=== PATIENT | male | born 1940 | race Two or more races ===

== ENCOUNTER 2023-05-05 07:25 | Outpatient (OUT) | payer MEDICARE, BC, SELFPAY ==
[2023-05-05 07:51] LABS: Basophils Absolute Auto 0.1 10^3/uL (0.0-0.1); Basophils Percent Auto 0.9 % (0.2-2.0); Eosinophils Absolute Auto 0.3 10^3/uL (0.0-0.7); Eosinophils Percent Auto 4.2 % (0.9-7.0); Hemoglobin 15.4 g/dL (14.0-18.0); Immature Granulocytes Abs Auto 0.03 10^3/uL (0.00-0.03); Immature Granulocytes Pct Auto 0.4 % (0.0-0.5); Lymphocytes Absolute Auto 1.8 10^3/uL (1.2-3.8); Lymphocytes Percent Auto 27.1 % (20.5-60.0); Mean Corpuscular HGB Conc 33.5 g/dL (29.9-35.2); Mean Corpuscular Hemoglobin 31.3 pg (25.9-34.0); Mean Corpuscular Volume 93.5 fL (80.0-94.0); Mean Platelet Volume 9.7 fL (9.5-13.5); Monocytes Absolute Auto 0.7 10^3/uL (0.3-0.8); Monocytes Percent Auto 10.3 % (1.7-12.0); Neutrophils Absolute Auto 3.8 10^3/uL (1.4-6.5); Neutrophils Percent Auto 57.1 % (43.0-75.0); Platelet Count 238 10^3/uL (150-450); Red Blood Count 4.92 10^6/uL (4.70-6.10); Red Cell Distribution Width 12.2 % (11.0-15.0); White Blood Count 6.7 10^3/uL (4.0-11.0)
[2023-05-05 08:12] LABS: Estimated Average Glucose 123 mg/dL; Glycohemoglobin A1C 5.9 % (4.5-6.2)
[2023-05-05 08:25] LABS: Alanine Aminotransferase 44 U/L (16-63); Albumin Globulin Ratio 1.1; Albumin Level 3.9 g/dL (3.4-5.0); Alkaline Phosphatase 82 U/L (46-116); Anion Gap 12.8; Aspartate Amino Transferase 30 U/L (15-37); Bilirubin Total 0.6 mg/dL (0.2-1.0); Calcium 8.7 mg/dL (8.5-10.1); Carbon Dioxide 30.6 mmol/L (21.0-32.0); Chloride 107 mmol/L (98-107); Chol HDL Ratio 4.2; Cholesterol 205 mg/dL (<=200); Estimated GFR (African America >60 (>=60); Estimated GFR (Non-African Ame >60 (>=60); Free T3 2.55 pg/mL (2.18-3.98); Globulin 3.6 g/dL; Glucose 110 mg/dL (74-106); HDL Cholesterol 49 mg/dL (40-60); Potassium 4.4 mmol/L (3.5-5.1); Sodium 146 mmol/L (136-145); Thyroid Stimulating Hormone 2.309 uIU/mL (0.358-3.740); Total Protein 7.5 g/dL (6.4-8.2); Triglycerides 178 mg/dL (<=150); VLDL CHOLESTEROL 35.6 mg/dL
[2023-05-05 08:39] LABS: Prostate Specific Antigen Scrn 4.77 ng/mL (<=4.00)
[2023-05-06 04:07] LABS: Prostate Specific Ag 4.5 ng/mL (0.0-4.0)
== END 2023-05-05 07:26 | disposition home or self-care (01) ==
PROVIDERS: PCP Family Medicine; Visit Provider Family Medicine
DX: G47.00 Insomnia, unspecified (principal); N40.0 Benign prostatic hyperplasia without lower urinary tract symptoms; I10 Essential (primary) hypertension; E78.00 Pure hypercholesterolemia, unspecified; R73.09 Other abnormal glucose; Z12.5 Encounter for screening for malignant neoplasm of prostate; R97.20 Elevated prostate specific antigen [PSA]
CPT/HCPCS: 36415; 80053; 80061; 83036; 84153; 84154; 84436; 84443; 84481; 85025; G0103

== ENCOUNTER 2023-12-20 16:11 | Outpatient (OUT) | payer MEDICARE, BC, SELFPAY ==
--- NOTE | 2023-12-20 16:58 | XR_ITS ---
The [address] [address] Patient Name: LINK NORTON MRN: [id number] date: 1940 Sex: M Assigned Patient Location: [facility] Current Patient Location: Accession/Order Number: [id number] Exam Date: 12/20/2023 16:50 Report Date: 12/21/2023 06:53 At the request of: KYM DYER Procedure: XR hip RT min 2V PROCEDURE: XR hip RT min 2V HISTORY: RIGHT HIP PAIN M25.551 ; chronic right hip pain increasing in severity COMPARISON: None. FINDINGS: BONES:Small degenerative osteophytes along the superior rim of acetabulum. Minimal narrowing of the superior aspect of the joint space. No fracture, dislocation, bone lesion. SOFT TISSUES:No visible soft tissue swelling. EFFUSION:None visible. OTHER: Negative. XR/XR hip RT min 2V IMPRESSION: 1. No acute bone abnormality. 2. Mild degenerative changes of the right hip joint. Electronically authenticated by: VAMSI FONTENOT Date: 12/21/2023 06:53
== END 2023-12-20 16:12 | disposition home or self-care (01) ==
LOC: RAD 16:12
PROVIDERS: PCP Family Medicine; Visit Provider Family Medicine
DX: M25.551 Pain in right hip (principal)
CPT/HCPCS: 73502

== ENCOUNTER 2023-12-28 13:18 | Day surgery (SDC) | payer MEDICARE, BC, SELFPAY ==
--- NOTE | 2023-12-28 13:22 | FL_ITS ---
[address] [address] Patient Name: LINK NORTON MRN: [id number] date: 1940 Sex: M Assigned Patient Location: [place] Current Patient Location: [place] Accession/Order Number: [id number] Exam Date: 12/28/2023 13:30 Report Date: 12/28/2023 15:25 At the request of: KYM DYER Procedure: FL guided needle placement EXAMINATION: FL hip inj RT, FL guided needle placement HISTORY: Right Hip Pain COMPARISON: No relevant comparison available. FLUORO DOSE: 15.88 mgy TECHNIQUE: A joint injection was performed in the usual sterile manner after obtaining informed consent. Standard level fluoroscopic mode of operation utilized. FINDINGS: JOINT: Right hip. NEEDLE: 22 gauge, 3.5 spinal needle. MEDICATION: 5cc buffered 1% lidocaine for subcutaneous anesthesia 5cc Omnipaque-300 iodinated contrast to visualize the joint space Mixture of Kenalog 40 mg, 0.5% Bupivacaine 2 mL and Omnipaque 300 10mL was injected into the joint space. TECHNIQUE: Anterior approach with prior localization of the femoral artery. CLINICAL: 2 out of 10 pain before the injection. 0 out of 10 pain following the injection COMPLICATIONS: None. OTHER: Negative. FL/FL guided needle placement IMPRESSION: Technically successful right hip therapeutic arthrogram Electronically authenticated by: HILDA ENG Date: 12/28/2023 15:25
--- NOTE | 2023-12-28 13:22 | FL_ITS ---
[address] [address] Patient Name: LINK NORTON MRN: [id number] date: 1940 Sex: M Assigned Patient Location: [place] Current Patient Location: [place] Accession/Order Number: [id number] Exam Date: 12/28/2023 13:30 Report Date: 12/28/2023 15:25 At the request of: KYM DYER Procedure: FL hip inj RT EXAMINATION: FL hip inj RT, FL guided needle placement HISTORY: Right Hip Pain COMPARISON: No relevant comparison available. FLUORO DOSE: 15.88 mgy TECHNIQUE: A joint injection was performed in the usual sterile manner after obtaining informed consent. Standard level fluoroscopic mode of operation utilized. FINDINGS: JOINT: Right hip. NEEDLE: 22 gauge, 3.5 spinal needle. MEDICATION: 5cc buffered 1% lidocaine for subcutaneous anesthesia 5cc Omnipaque-300 iodinated contrast to visualize the joint space Mixture of Kenalog 40 mg, 0.5% Bupivacaine 2 mL and Omnipaque 300 10mL was injected into the joint space. TECHNIQUE: Anterior approach with prior localization of the femoral artery. CLINICAL: 2 out of 10 pain before the injection. 0 out of 10 pain following the injection COMPLICATIONS: None. OTHER: Negative. FL/FL hip inj RT IMPRESSION: Technically successful right hip therapeutic arthrogram Electronically authenticated by: HILDA ENG Date: 12/28/2023 15:25
[2023-12-28] MEDS: LIDOCAINE HCL 10 ML, SODIUM BICARBONATE 1 MEQ INJ (14:15)
[2023-12-28] MEDS: BUPIVACAINE HCL 0.5% PF 50 MG/10 ML VIAL 2 ML INJ (14:15)
[2023-12-28] MEDS: TRIAMCINOLONE ACETONIDE 40 MG/ML VIAL INJ (14:15)
--- NOTE | 2023-12-28 14:46 | SUR.PREOP ---
12/25/23 Pt instructed on procedure, date, time ,and prep.
[2023-12-28 14:49] VITALS: BMI 31.0
== END 2023-12-28 14:40 | disposition home or self-care (01) ==
LOC: FL 13:18
PROVIDERS: Radiology Diagnostic Radiology; PCP Family Medicine; Visit Provider Family Medicine
DX: M25.551 Pain in right hip (principal)
CPT/HCPCS: 20610; 77002; J0665; J3301; Q9967

== ENCOUNTER 2024-02-03 11:47 | Emergency (ER) | payer MEDICARE, BC, SELFPAY ==
[2024-02-03] VITALS (18 sets, daily range): BP systolic 98–173; BP diastolic 71–107; PULSE 75–105; TEMP 36.6; O2SAT 65–95; BMI 29.3
--- NOTE | 2024-02-03 12:07 | ECG_ITS ---
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
--- NOTE | 2024-02-03 12:07 | XR_ITS ---
The [address] [address] Patient Name: LINK NORTON MRN: [id number] date: 1940 Sex: M Assigned Patient Location: ER Current Patient Location: ER Accession/Order Number: [id number] Exam Date: 02/03/2024 12:15 Report Date: 02/03/2024 13:16 At the request of: AYAN TOMPKINS Procedure: XR chest 1V EXAM: XR chest 1V INDICATION: Dyspnea. COMPARISON: None. TECHNIQUE: Single frontal view of the chest FINDINGS: Enlarged cardiac silhouette. No acute infiltrative process. No pleural effusion or pneumothorax. No acute osseous abnormality. XR/XR chest 1V IMPRESSION: No acute cardiopulmonary process. Electronically authenticated by: JIN TERRELL Date: 02/03/2024 13:16
--- NOTE | 2024-02-03 12:08 | ED.SOB1 ---
HPI - SOB/Dyspnea General Chief Complaint: Shortness of Breath/Dyspnea Stated Complaint: SHORTNESS OF BREATH/ CHEST PAIN Time Seen by Provider: 02/03/24 12:03 Source: patient and family Mode of arrival: Wheelchair History of Present Illness HPI Narrative: This pain complaining of shortness of breath. He states when he came up from some basement stairs yesterday he had shortness of breath. It is continued throughout the evening and today. He has a history of hypertension and hypercholesterolemia. He denies any history of diabetes. No previous cardiovascular disease or heart attacks that he is aware of. He did not really notice any pressure or heaviness or discomfort in his chest neck jaw or arms is all negative. He just notices the shortness. He denies any history of pulmonary embolism or blood clots. He has not been sick recently with cough cold congestion or upper respiratory symptoms. He has not been running a fever. Related Data Home Medications ?Medication ?Instructions ?Recorded ?Confirmed atorvastatin 20 mg tablet 20 mg PO DAILY 12/25/23 02/03/24 carisoprodol 350 mg tablet 350 mg PO TID 12/25/23 02/03/24 carvedilol 6.25 mg tablet 6.25 mg PO BID 12/25/23 02/03/24 cetirizine 10 mg capsule 10 mg PO BID PRN allergy symptoms 12/25/23 02/03/24 etodolac 500 mg tablet 500 mg PO BID 12/25/23 02/03/24 omeprazole 40 mg capsule,delayed 40 mg PO DAILY 12/25/23 02/03/24 release temazepam 30 mg capsule 30 mg PO .hs 12/28/23 12/28/23 olmesartan 40 mg tablet 40 mg PO DAILY 02/03/24 02/03/24 Allergies Allergy/AdvReac Type Severity Reaction Status Date / Time No Known Drug Allergies Allergy Verified 12/28/23 14:45 [facility] Medical History (Updated 02/03/24 @ 15:35 by Nicholas Quesada MD) High cholesterol ?E78.00 - Pure hypercholesterolemia, unspecified (ICD-10) Arthritis ?M19.90 - Unspecified osteoarthritis, unspecified site (ICD-10) HTN (hypertension) ?I10 - Essential (primary) hypertension (ICD-10) Hip pain, right ?M25.551 - Pain in right hip (ICD-10) Surgical History (Updated 12/25/23 @ 13:30 by Sariah Guerra) Hx of tonsillectomy ?Z90.89 - Acquired absence of other organs (ICD-10) S/P TURP (transurethral resection of prostate) ?Z90.79 - Acquired absence of other genital organ(s) (ICD-10) H/O colonoscopy ?Z98.890 - Other specified postprocedural states (ICD-10) Exam Narrative Exam Narrative: Patient is awake alert with substantial hypoxemia in the 60s and 70s on pulse oximetry. He was immediately placed on 100% nonrebreather with improvement of oximetry to approximately 92 to 95% and it remained in that range throughout his ER stay here. He has not clammy or diaphoretic or cyanotic. He is able to complete sentences. He denies any pressure heaviness or discomfort in his chest area. His legs have no evidence of DVT phlebitis edema or swelling. His abdomen is soft and supple with no pain tenderness guarding or discomfort. Heart rate and rhythm are regular with no ectopy. A stat twelve-lead EKG does not show any ST segment elevation but it does show a right bundle branch block. He does have T wave inversion lead V1 through V3 that was not present pretty for from an EKG in 2018. He does have Q waves inferior that appear new from 2018 as well. Neurological examination is normal with no confusion or altered mental status or focal neurological deficits. Constitutional Vital Signs, click to edit/add: Last Vital Signs Temp 97.9 F 02/03/24 11:58 Pulse 80 02/03/24 14:40 Resp 17 02/03/24 14:40 BP 154/107 H 02/03/24 15:00 Pulse Ox 95 02/03/24 14:40 O2 Del Method Nonrebreather 02/03/24 12:19 O2 Flow Rate 15 02/03/24 12:19 Course Vital Signs Vital signs: Vital Signs Temperature 97.9 F 02/03/24 11:58 Pulse Rate 105 H 02/03/24 11:58 Respiratory Rate 28 H 02/03/24 11:58 Blood Pressure 98/71 02/03/24 11:58 Pulse Oximetry 67 L 02/03/24 11:58 Oxygen Delivery Method Room Air 02/03/24 11:58 Temperature 97.9 F 02/03/24 11:58 Pulse Rate 80 02/03/24 14:40 Respiratory Rate 17 02/03/24 14:40 Blood Pressure 154/107 H 02/03/24 15:00 Pulse Oximetry 95 02/03/24 14:40 Oxygen Delivery Method Nonrebreather 02/03/24 12:19 Oxygen Delivery Flow Rate 15 02/03/24 12:19 MDM - SOB/Dyspnea MDM Narrative Medical decision making narrative: This patient presents with severe hypoxemia onset of shortness of breath yesterday with no substantial cardiovascular history. Differential diagnosis of course would include pulmonary embolism/myocardial infarction or heart failure. Screening laboratory tests were done. His D-dimer is substantially elevated so we got an immediate CTA. The radiologist contacted me with the results at 1400 hrs. There was felt to be a bilateral distal pulmonary embolism with some enlargement of the right ventricle and some reflux into the IVC. They are advising echocardiogram for further delineation. At that time we immediately called local hospitals for transferring this patient. His cardiac troponin is substantially elevated at over 500 and his BNP is also substantially elevated. [facility] was called and unfortunately they have a number of patients waiting admission in their emergency room and they were not able to give us a ICU bed. We then contacted [facility] and were awaiting disposition and hospital transfer but during that process the family also indicated they they have should consider [facility]. We then paged the hospitalist at [facility] and they had a conference call with myself, their wheat shipper, and concrete buster operator. I discussed all the CT findings lab vital signs oximetry with them and they felt be best if the patient will be life flighted to that facility. [facility] was immediately called at 1525 hrs. They will give us an ICU bed assignment. At the time of this note the patient's vital signs are stable his blood pressure is 154/107 oximetry is 95% respiratory rate 18. All this was discussed with the the patient. The patient had already been placed on a heparin drip when his CTA was reported to me at 1400 hrs. Lab Data Labs: Lab Results 02/03/24 02/03/24 Range/Units 12:13 12:26 WBC 9.3 (4.0-11.0) 10^3/uL RBC 5.23 (4.70-6.10) 10^6/uL Hgb 16.5 (14.0-18.0) g/dL Hct 47.7 (42.0-54.0) % MCV 91.2 (80.0-94.0) fL MCH 31.5 (25.9-34.0) pg MCHC 34.6 (29.9-35.2) g/dL RDW 12.8 (11.0-15.0) % Plt Count 206 (150-450) 10^3/uL MPV 9.5 (9.5-13.5) fL Neut % (Auto) 77.9 H (43.0-75.0) % Lymph % (Auto) 15.7 L (20.5-60.0) % [place] % (Auto) 5.6 (1.7-12.0) % Eos % (Auto) 0.1 L (0.9-7.0) % Baso % (Auto) 0.3 (0.2-2.0) % Neut # (Auto) 7.3 H (1.4-6.5) 10^3/uL Lymph # (Auto) 1.5 (1.2-3.8) 10^3/uL [place] # (Auto) 0.5 (0.3-0.8) 10^3/uL Eos # (Auto) 0.0 (0.0-0.7) 10^3/uL Baso # (Auto) 0.0 (0.0-0.1) 10^3/uL Abs Immat Gran (auto) 0.04 H (0.00-0.03) 10^3/uL Imm/Tot Granulo (auto) 0.4 (0.0-0.5) % D-Dimer 8.76 H* (<=0.59) mg/L FEU Sodium 139 (136-145) mmol/L Potassium 4.7 (3.5-5.1) mmol/L Chloride 102 (98-107) mmol/L Carbon Dioxide 21.4 (21.0-32.0) mmol/L Anion Gap 20.3 BUN 21.0 H (7.0-18.0) mg/dL Creatinine 1.62 H (0.70-1.30) mg/dL Est GFR ( Amer) 50 L (>=60) Est GFR (Non-Af Amer) 41 L (>=60) BUN/Creatinine Ratio 13.0 Glucose 224 H (74-106) mg/dL Calcium 9.4 (8.5-10.1) mg/dL Total Bilirubin 0.7 (0.2-1.0) mg/dL AST 30 (15-37) U/L ALT 35 (16-63) U/L Alkaline Phosphatase 112 (46-116) U/L Troponin I High Sens 556.0 H* (4.0-76.1) pg/mL NT-Pro-B Natriuret Pep 6753.0 H* (<=1800.0) pg/mL Total Protein 7.7 (6.4-8.2) g/dL Albumin 3.9 (3.4-5.0) g/dL Globulin 3.8 g/dL Albumin/Globulin Ratio 1.0 Critical Care Time Critical Care Time Critical Care Time: Yes Total Critical Care Time: 75 Attestation: I spent numerous visits with the patient and the family spoke to multiple specialist including radiology cardiology pulmonary and critical care as well as [facility] Discharge Plan Discharge Chief Complaint: Shortness of Breath/Dyspnea Clinical Impression: Bilateral pulmonary embolism Patient Disposition: [facility] Time of Disposition Decision: 15:20 Discharge Location: [facility] Heri Fraser Condition: Serious Prescriptions / Home Meds: No Action etodolac 500 mg tablet 500 mg PO BID omeprazole 40 mg capsule,delayed release(DR/EC) 40 mg PO DAILY carvedilol 6.25 mg tablet 6.25 mg PO BID Rx Instructions: must administer with a meal/food atorvastatin 20 mg tablet 20 mg PO DAILY carisoprodol 350 mg tablet 350 mg PO TID cetirizine 10 mg capsule 10 mg PO BID PRN (Reason: allergy symptoms) temazepam 30 mg capsule 30 mg PO .hs olmesartan 40 mg tablet 40 mg PO DAILY Print Language: [place] Islander Referrals: Sujit Childress MD [Primary Care Provider] - 1 week
--- OUTSIDE RECORDS SUMMARY | 2024-02-03 12:11 | XMS_ITS | CCD ---
Author Organization [facility] Care Team Providers Care Research Anthropologist Name Role Phone DR KYM DYER Admitting Unavailable DR KYM DYER Attending Unavailable DR KYM DYER Primary Care Unavailable DR KYM DYER Admitting Unavailable DR KYM DYER Attending Unavailable DR KYM DYER Primary Care Unavailable DR KYM DYER Consulting Unavailable Allergies Allergy Classification Reported Allergen(s) Allergy Type Date of Onset Reaction(s) Facility (2 sources) yellow jacket venom protein Drug Allergy [facility] Problems Problem Classification Problem Date Documented Date Episodic/Chronic Congestive heart failure; nonhypertensive (1 source) Unspecified diastolic (congestive) heart failure; Translations: [UNSPECIFIED DIASTOLIC HEART FAILURE] Onset: 2 Chronic Diabetes mellitus without complication (1 source) Other abnormal glucose; Translations: [OTHER ABNORMAL GLUCOSE] Onset: 2 Episodic Disorders of lipid metabolism (1 source) Pure hypercholesterolemia, unspecified; Translations: [PURE HYPERCHOLESTEROLEMIA UNSPEC] Onset: 2 Chronic Essential hypertension (1 source) Essential (primary) hypertension; Translations: [ESSENTIAL PRIMARY HYPERTENSION] Onset: 2 Chronic Hypertension with complications and secondary hypertension (1 source) Hypertensive heart disease with heart failure; Translations: [HTN HEART DISEASE W/HEART FAIL] Onset: 2 Chronic Other male genital disorders (1 source) Male erectile dysfunction, unspecified; Translations: [MALE ERECTILE DYSFUNCTION UNS] Onset: 2 Chronic Other screening for suspected conditions (not mental disorders or infectious disease) (6 sources) Elevated prostate specific antigen [PSA]; Translations: [Encounter for screening for malignant neoplasm of prostate] Onset: 2 Episodic Results Test Name Value Interpretation Reference Range Facil ity PSA, FREE AND TOTAL RATIOon 05-11-2022 % Free PSA 16.1 % Normal [facility] Comment on above: Result Comment: The table below lists the probability of prostate cancer for men with non-suspicious KANDIS results and total PSA between 4 and 10 ng/mL, by patient age (Kate et al, YULI 1998, 279:1542). % Free PSA 50-64 yr 65-75 yr 0.00-10.00% 56% 55% 10.01-15.00% 24% 35% 15.01-20.00% 17% 23% 20.01-25.00% 10% 20% >25.00% 5% 9% Please note: Kate et al did not make specific recommendations regarding the use of percent free PSA for any other population of men. Performed By: #### P SAFREE #### [facility] [address] [place] [address] Dr. Wicho Allred Prostate specific Ag [Mass/Vol] 4.4 ng/mL Critically high 0.0-4.0 [facility] Comment on above: Result Comment: Prema man ECLIA methodology. . According to the [employer] [employer], Serum PSA should decrease and remain at undetectable levels after radical prostatectomy. The AUA defines biochemical recurrence as an initial PSA value 0.2 ng/mL or greater followed by a subsequent confirmatory PSA value 0.2 ng/mL or greater. Values obtained with different assay methods or kits cannot be used interchangeably. Results cannot be interpreted as absolute evidence of the presence or absence of malignant disease. Performed By: #### P SAFREE #### [facility] [address] [place] [address] Dr. Wicho Allred PSA, Free 0.71 ng/mL Normal N/A [facility] Comment on above: Result Comment: Prema man ECLIA methodology. Performed By: #### P SAFREE #### [facility] [address] [place] [address] Dr. Wicho Allred INSULINon 05-10-2022 Insulin 22.8 uIU/mL Normal 2.6-24.9 [facility] Comment on above: Performed By: #### I NSULIN #### [facility] [address] [place] [address] Dr. Wicho Allred BNPon 05-09-2022 Natriuretic peptide B (Bld) [Mass/Vol] 160.0 pg/mL Normal <=1,800.0 [facility] Comment on above: Performed By: #### L IPID, URIC, BNP, CMP, TSH, T7 #### [facility] [address] [place] [address] Dr. Wicho Allred CBC AUTO DIFFon 05-09-2022 BASO # 0.1 103/ul Normal 0.0-0.1 [facility] Comment on above: Performed By: #### A 1C #### [facility] [address] [place] [address] Dr. Wicho Allred Basophils/100 WBC (Bld) 0.8 % Normal 0.2-2.0 [facility] Comment on above: Performed By: #### A 1C #### [facility] [address] [place] [address] Dr. Wicho Allred EO # 0.2 103/ul Normal 0.0-0.7 [facility] Comment on above: Performed By: #### A 1C #### [facility] [address] [place] [address] Dr. Wicho Allred Eosinophils/100 WBC (Bld) 3.3 % Normal 0.9-7.0 [facility] Comment on above: Performed By: #### A 1C #### [facility] [address] [place] [address] Dr. Wicho Allred Erythrocyte distribution width (RBC) [Ratio] 12.1 % Normal 11.0-15.0 [facility] Comment on above: Performed By: #### A 1C #### [facility] [address] [place] [address] Dr. Wicho Allred Hematocrit (Bld) [Volume fraction] 46.5 % Normal 42.0-54.0 [facility] Comment on above: Performed By: #### A 1C #### [facility] [address] [place] [address] Dr. Wicho Allred Hemoglobin (Bld) [Mass/Vol] 15.8 g/dL Normal 14.0-18.0 [facility] Comment on above: Performed By: #### A 1C #### [facility] [address] [place] [address] Dr. Wicho Allred IG # 0.02 10e3/ul Normal 0.00-0.03 [facility] Comment on above: Performed By: #### A 1C #### [facility] [address] [place] [address] Dr. Wicho Allred IG % 0.3 % Normal 0.0-0.5 [facility] Comment on above: Performed By: #### A 1C #### [facility] [address] [place] [address] Dr. Wicho Allred LYMPH # 1.6 103/ul Normal 1.2-3.8 [facility] Comment on above: Performed By: #### A 1C #### [facility] [address] [place] [address] Dr. Wicho Allred Lymphocytes/100 WBC (Bld) 25.7 % Normal 20.5-60.0 [facility] Comment on above: Performed By: #### A 1C #### [facility] [address] [place] [address] Dr. Wicho Allred MANUAL DIFF REQ NO Normal [facility] Comment on above: Performed By: #### A 1C #### [facility] [address] [place] [address] Dr. Wicho Allred MCH (RBC) [Entitic mass] 31.0 pg Normal 25.9-34.0 [facility] Comment on above: Performed By: #### A 1C #### [facility] [address] [place] [address] Dr. Wicho Allred MCHC (RBC) [Mass/Vol] 34.0 g/dL Normal 29.9-35.2 [facility] Comment on above: Performed By: #### A 1C #### [facility] [address] [place] [address] Dr. Wicho Allred MCV (RBC) [Entitic vol] 91.4 fL Normal 80.0-94.0 [facility] Comment on above: Performed By: #### A 1C #### [facility] [address] [place] [address] Dr. Wicho Allred MONO # 0.5 103/ul Normal 0.3-0.8 [facility] Comment on above: Performed By: #### A 1C #### [facility] [address] [place] [address] Dr. Wicho Allred Monocytes/100 WBC (Bld) 7.4 % Normal 1.7-12.0 [facility] Comment on above: Performed By: #### A 1C #### [facility] [address] [place] [address] Dr. Wicho Allred NEUT # 4.0 103/ul Normal 1.4-6.5 [facility] Comment on above: Performed By: #### A 1C #### [facility] [address] [place] [address] Dr. Wicho Allred Neutrophils/100 WBC (Bld) 62.5 % Normal 43.0-75.0 [facility] Comment on above: Performed By: #### A 1C #### [facility] [address] [place] [address] Dr. Wicho Allred Platelet mean volume (Bld) [Entitic vol] 9.4 fL Critically low 9.5-13.5 [facility] Comment on above: Performed By: #### A 1C #### [facility] [address] [place] [address] Dr. Wicho Allred PLT 238 103/ul Normal 150-450 [facility] Comment on above: Performed By: #### A 1C #### [facility] [address] [place] [address] Dr. Wicho Allred RBC 5.09 106/ul Normal 4.70-6.10 [facility] Comment on above: Performed By: #### A 1C #### [facility] [address] [place] [address] Dr. Wicho Allred WBC 6.4 103/ul Normal 4.0-11.0 [facility] Comment on above: Performed By: #### A 1C #### [facility] [address] [place] [address] Dr. Wicho Allred FREE THYROXINE INDEX T7on FTI 2.07 Normal 1.30-4.50 [facility] Comment on above: Performed By: #### L IPID, URIC, BNP, CMP, TSH, T7 #### [facility] [address] [address] [address] Wicho Allred T3U 35.0 % Normal 33.0-40.0 [facility] Comment on above: Performed By: #### L IPID, URIC, BNP, CMP, TSH, T7 #### [facility] [address] [address] [address] Wicho Allred T4 [Mass/Vol] 5.90 ug/dL Normal 4.50-12.10 [facility] Comment on above: Performed By: #### L IPID, URIC, BNP, CMP, TSH, T7 #### [facility] [address] [place] [address] Dr. Wicho Allred GLYCOHEMOGLOBIN A1Con 2021 ADA RECOMMENDATION SEE BELOW Normal [facility] Comment on above: Result Comment: ADA RECOMMENDED LIMIT 4.0 - 6.0 ADA THERAPEUTIC TARGET < 7.0 ACTION SUGGESTED > 7.0 Performed By: #### A 1C #### [facility] [address] [place] [address] Dr. Wicho Allred Glucose [Mass/Vol] 117 mg/dL Normal [facility] Comment on above: Performed By: #### A 1C #### [facility] [address] [place] [address] Dr. Wicho Allred HbA1c (Bld) [Mass fraction] 5.7 % Normal 4.5-6.2 [facility] Comment on above: Performed By: #### A 1C #### [facility] [address] [place] [address] Dr. Wicho Allred LIPID PROFILEon 05-09-2022 CHOL-HDL RATIO NORM SEE BELOW Normal [facility] Comment on above: Result Comment: 3.3 - 4.4 LOW RISK 4.4 - 7.1 AVERAGE RISK 7.1 - 11.0 MODERATE RISK >11.0 HIGH RISK Performed By: #### L IPID, URIC, BNP, CMP, TSH, T7 #### [facility] [address] [place] [address] Dr. Wicho Allred Cholesterol [Mass/Vol] 194 mg/dL Normal <=200 [facility] Comment on above: Performed By: #### L IPID, URIC, BNP, CMP, TSH, T7 #### [facility] [address] [address] [address] Wicho Allred Cholesterol in HDL [Mass/Vol] 50 mg/dL Normal 40-60 [facility] Comment on above: Performed By: #### L IPID, URIC, BNP, CMP, TSH, T7 #### [facility] [address] [address] [address] Wicho Allred Cholesterol in LDL [Mass/Vol] 113.0 mg/dL Normal [facility] Comment on above: Performed By: #### L IPID, URIC, BNP, CMP, TSH, T7 #### [facility] [address] [address] [address] Wicho Allred Cholesterol.total/Cho lesterol in HDL [Mass ratio] 3.9 {ratio} Normal [facility] Comment on above: Performed By: #### L IPID, URIC, BNP, CMP, TSH, T7 #### [facility] [address] [address] [address] Wicho Allred HDL NORMAL > or = 60 mg/dl - LOW CARDIOVASCULAR RISK <40 mg/dl - HIGH CARDIOVASCULAR RISK Normal [facility] Comment on above: Performed By: #### L IPID, URIC, BNP, CMP, TSH, T7 #### [facility] [address] [address] [address] Wicho Allred LDL CALC NORMAL SEE BELOW Normal [facility] Comment on above: Result Comment: <100 mg/dl OPTIMAL 100 - 129 mg/dl NEAR OR ABOVE OPTIMAL 130 - 159 mg/dl BORDERLINE HIGH 160 - 189 mg/dl HIGH >190 mg/dl VERY HIGH Performed By: #### L IPID, URIC, BNP, CMP, TSH, T7 #### [facility] [address] [address] [address] Wicho Allred Triglyceride [Mass/Vol] 155 mg/dL Critically high <=150 [facility] Comment on above: Performed By: #### L IPID, URIC, BNP, CMP, TSH, T7 #### [facility] [address] [place] [address] Dr. Wicho Allred VLDL CALC 31.0 mg/dL Normal [facility] Comment on above: Performed By: #### L IPID, URIC, BNP, CMP, TSH, T7 #### [facility] [address] [place] [address] Dr. Wicho Allred PROF 14(COMP METB)on 022 Albumin [Mass/Vol] 4.1 g/dL Normal 3.4-5.0 [facility] Comment on above: Performed By: #### L IPID, URIC, BNP, CMP, TSH, T7 #### [facility] [address] [place] [address] Dr. Wicho Allred Albumin/Globulin [Mass ratio] 1.1 {ratio} Normal [facility] Comment on above: Performed By: #### L IPID, URIC, BNP, CMP, TSH, T7 #### [facility] [address] [place] [address] Dr. Wicho Allred ALP [Catalytic activity/Vol] 86 U/L Normal 46-116 [facility] Comment on above: Performed By: #### L IPID, URIC, BNP, CMP, TSH, T7 #### [facility] [address] [place] [address] Dr. Wicho Allred ALT [Catalytic activity/Vol] 42 U/L Normal 16-63 [facility] Comment on above: Performed By: #### L IPID, URIC, BNP, CMP, TSH, T7 #### [facility] [address] [place] [address] Dr. Wicho Allred Anion gap [Moles/Vol] 11.5 mmol/L Normal [facility] Comment on above: Performed By: #### L IPID, URIC, BNP, CMP, TSH, T7 #### [facility] [address] [place] [address] Dr. Wicho Allred AST [Catalytic activity/Vol] 30 U/L Normal 15-37 [facility] Comment on above: Performed By: #### L IPID, URIC, BNP, CMP, TSH, T7 #### [facility] [address] [place] [address] Dr. Wicho Allred Bilirubin [Mass/Vol] 0.5 mg/dL Normal 0.2-1.0 [facility] Comment on above: Performed By: #### L IPID, URIC, BNP, CMP, TSH, T7 #### [facility] [address] [place] [address] Dr. Wicho Allred Calcium [Mass/Vol] 9.1 mg/dL Normal 8.5-10.1 [facility] Comment on above: Performed By: #### L IPID, URIC, BNP, CMP, TSH, T7 #### [facility] [address] [place] [address] Dr. Wicho Allred Chloride [Moles/Vol] 103 mmol/L Normal 98-107 [facility] Comment on above: Performed By: #### L IPID, URIC, BNP, CMP, TSH, T7 #### [facility] [address] [place] [address] Dr. Wicho Allred CO2 [Moles/Vol] 31.0 mmol/L Normal 21.0-32.0 [facility] Comment on above: Performed By: #### L IPID, URIC, BNP, CMP, TSH, T7 #### [facility] [address] [place] [address] Dr. Wicho Allred Creatinine [Mass/Vol] 0.98 mg/dL Normal 0.70-1.30 [facility] Comment on above: Performed By: #### L IPID, URIC, BNP, CMP, TSH, T7 #### [facility] [address] [place] [address] Dr. Wicho Allred EGFR-AF [place] >60 Normal >=60 [facility] Comment on above: Performed By: #### L IPID, URIC, BNP, CMP, TSH, T7 #### [facility] [address] [place] [address] Dr. Wicho Allred EGFR-NON AF [place] >60 Normal >=60 [facility] Comment on above: Performed By: #### L IPID, URIC, BNP, CMP, TSH, T7 #### [facility] [address] [place] [address] Dr. Wicho Allred Globulin (S) [Mass/Vol] 3.8 g/dL Normal [facility] Comment on above: Performed By: #### L IPID, URIC, BNP, CMP, TSH, T7 #### [facility] [address] [place] [address] Dr. Wicho Allred Glucose [Mass/Vol] 114 mg/dL Critically high 74-106 [facility] Comment on above: Performed By: #### L IPID, URIC, BNP, CMP, TSH, T7 #### [facility] [address] [address] [address] Wicho Allred Potassium [Moles/Vol] 4.5 mmol/L Normal 3.5-5.1 [facility] Comment on above: Performed By: #### L IPID, URIC, BNP, CMP, TSH, T7 #### [facility] [address] [place] [address] Dr. Wicho Allred Protein [Mass/Vol] 7.9 g/dL Normal 6.4-8.2 [facility] Comment on above: Performed By: #### L IPID, URIC, BNP, CMP, TSH, T7 #### [facility] [address] [place] [address] Dr. Wicho Allred Sodium [Moles/Vol] 141 mmol/L Normal 136-145 [facility] Comment on above: Performed By: #### L IPID, URIC, BNP, CMP, TSH, T7 #### [facility] [address] [place] [address] Dr. Wicho Allred Urea nitrogen [Mass/Vol] 18.0 mg/dL Normal 7.0-18.0 [facility] Comment on above: Performed By: #### L IPID, URIC, BNP, CMP, TSH, T7 #### [facility] [address] [place] [address] Dr. Wicho Allred Urea nitrogen/Creatinine [Mass ratio] 18.4 mg/mg Normal [facility] Comment on above: Performed By: #### L IPID, URIC, BNP, CMP, TSH, T7 #### [facility] [address] [place], [place] [address] Dr. Wicho Allred TSHon 05-09-2022 TSH 1.346 uIU/mL Normal 0.358-3.740 [facility] Comment on above: Performed By: #### L IPID, URIC, BNP, CMP, TSH, T7 #### [facility] [address] [place], [place] [address] Dr. Wicho Allred URIC ACID SERUMon 05-09-2022 Urate [Mass/Vol] 3.9 mg/dL Normal 3.5-7.2 [facility] Comment on above: Performed By: #### L IPID, URIC, BNP, CMP, TSH, T7 #### [facility] [address] [place], [place] [address] Dr. Wicho Allred Encounters Encounter Date Encounter Type Care Provider Facility Start: 05-09-2022 End: 05-10-[address] KYM DYER Facility:[facility] Start: 10-20-[address] KYM DYER Facility :[facility] Procedures Date Procedure Procedure Detail Performing Clinician Start: 05-09-[address] MALIA DYER Comment on above: Performed By: #### P SASC #### [facility] [address] [address] [address] Wicho Allred Payers Date Payer Category Payer Medicare [id number] 1957 Self-pay 1957 Unknown [id number] 1940 Unknown [id number] 1940 Unknown [id number] Summary Purpose Family History No Family History Records Found Advance Directives No Advanced Directives Records Found Additional Source Comments (unrecognized sect ion and content) No Status Records Found INFORMATION SOURCE (unrecogn ized section and content) DATE CREATED AUTHOR 05/18/2022 [facility] FOR RECORDS PERTAINING TO PATIENTS WHO ARE OR HAVE BEEN ENROLLED IN A CHEMICAL DEPENDENCY/SUBSTANCEABUSE PROGRAM, SOME INFORMATION MAY BE OMITTED. This clinical summary was aggregated from multiple sources. Caution should be exercised in using it in the provision of clinical care. This summary normalizes information from multiple sources, and as a consequence, information in this document may materially change the coding, format and clinical context of patient data. In addition, data may be omitted in some cases. CLINICAL DECISIONS SHOULD BE BASED ON THE PRIMARY CLINICAL RECORDS. [facility]. provides no warranty or guarantee of the accuracy or completeness of information in this document.
[2024-02-03 12:34] LABS: Basophils Percent Auto 0.3 % (0.2-2.0); Eosinophils Percent Auto 0.1 % (0.9-7.0); Hematocrit 47.7 % (42.0-54.0); Hemoglobin 16.5 g/dL (14.0-18.0); Immature Granulocytes Abs Auto 0.04 10^3/uL (0.00-0.03); Immature Granulocytes Pct Auto 0.4 % (0.0-0.5); Lymphocytes Absolute Auto 1.5 10^3/uL (1.2-3.8); Lymphocytes Percent Auto 15.7 % (20.5-60.0); Mean Corpuscular HGB Conc 34.6 g/dL (29.9-35.2); Mean Corpuscular Hemoglobin 31.5 pg (25.9-34.0); Mean Corpuscular Volume 91.2 fL (80.0-94.0); Mean Platelet Volume 9.5 fL (9.5-13.5); Monocytes Absolute Auto 0.5 10^3/uL (0.3-0.8); Monocytes Percent Auto 5.6 % (1.7-12.0); Neutrophils Absolute Auto 7.3 10^3/uL (1.4-6.5); Neutrophils Percent Auto 77.9 % (43.0-75.0); Platelet Count 206 10^3/uL (150-450); Red Blood Count 5.23 10^6/uL (4.70-6.10); Red Cell Distribution Width 12.8 % (11.0-15.0); White Blood Count 9.3 10^3/uL (4.0-11.0)
[2024-02-03 12:53] LABS: Alanine Aminotransferase 35 U/L (16-63); Albumin Level 3.9 g/dL (3.4-5.0); Alkaline Phosphatase 112 U/L (46-116); Anion Gap 20.3; Aspartate Amino Transferase 30 U/L (15-37); Bilirubin Total 0.7 mg/dL (0.2-1.0); Calcium 9.4 mg/dL (8.5-10.1); Carbon Dioxide 21.4 mmol/L (21.0-32.0); Chloride 102 mmol/L (98-107); Estimated GFR (African America 50 (>=60); Estimated GFR (Non-African Ame 41 (>=60); Globulin 3.8 g/dL; Glucose 224 mg/dL (74-106); Potassium 4.7 mmol/L (3.5-5.1); Sodium 139 mmol/L (136-145); Total Protein 7.7 g/dL (6.4-8.2)
[2024-02-03 12:58] LABS: D Dimer 8.76 mg/L FEU (<=0.59)
--- NOTE | 2024-02-03 12:59 | CT_ITS ---
[address] [address] Patient Name: LINK NORTON MRN: [id number] date: 1940 Sex: M Assigned Patient Location: ER Current Patient Location: ER Accession/Order Number: [id number] Exam Date: 02/03/2024 13:20 Report Date: 02/03/2024 14:00 At the request of: AYAN TOMPKINS Procedure: CT angio chest EXAM: CT angio chest HISTORY: Elevated D-dimer/hypoxia COMPARISON: None. TECHNIQUE: CT chest with intravenous contrast was performed with timing for the evaluation for pulmonary arteries. Multiplanar reformats were performed. MIP (maximum intensity projection) images or 3D post processing was performed. Dose reduction techniques were achieved by using automated exposure control and/or adjustment of mA and/or kV according to patient size and/or use of iterative reconstruction technique. FINDINGS: Lungs: No consolidation, pneumothorax or effusion. Airways: Normal. Mediastinum: No adenopathy. Aorta: No aneurysm. Cardiac: Right ventricle measures 5.2 cm and the ventricle measures 4.1 cm with mild reflux of contrast into the IVC and hepatic vein. Findings may represent heart strain. Correlation with echocardiography is recommended. No pericardial effusion. Pulmonary vasculature: Occlusive filling defect involving distal bilateral pulmonary arteries, extending to the interlobar and segmental branches of the upper, middle and lower lobes. Bones: No acute bony abnormality. Axilla: No adenopathy. Thyroid gland: No abnormality demonstrated on provided imaging. Soft tissues: Unremarkable. Upper abdomen: Unremarkable. Additional findings: None. CT/CT angio chest IMPRESSION: Occlusive acute pulmonary embolism involving distal branches of bilateral pulmonary arteries, extending to the interlobar and segmental branches as described above. Right ventricle measures 5.2 cm and the ventricle measures 4.1 cm with mild reflux of contrast into the IVC and hepatic vein. Findings may represent heart strain. Correlation with echocardiography is recommended. Critical results were NOTIFIED by TELEPHONE BY Dr. Caro Santoyo MD to md bre At 02/03/2024 1:52 PM EDT. Electronically authenticated by: CARO SANTOYO Date: 02/03/2024 14:00
[2024-02-03] MEDS: HEPARIN SODIUM,PORCINE/D5W 25,000 UNIT/500 ML IV.SOLN 25 UNIT IV (14:27)
[2024-02-03] MEDS: HEPARIN SODIUM (PORCINE) 5,000 UNIT/ML VIAL 3700 UNIT IV (14:27)
== END 2024-02-03 16:23 | disposition short-term general hospital (02) ==
PROVIDERS: Emergency Provider Emergency Medicine Emergency Medical Services; PCP Family Medicine
DX: I26.99 Other pulmonary embolism without acute cor pulmonale (principal); I10 Essential (primary) hypertension; E78.00 Pure hypercholesterolemia, unspecified
CPT/HCPCS: 36415; 71045; 71275; 80053; 83880; 84484; 85025; 85378; 93005; 96365; 96366; 96376; 99285; J1644; Q9966

== ENCOUNTER 2024-02-20 14:53 | Outpatient (OUT) | payer MEDICARE, BC, SELFPAY ==
--- OUTSIDE RECORDS SUMMARY | 2024-02-20 15:03 | XMS_ITS | CCD ---
Author Organization [facility] Care Team Providers Care Bilingual Legal Assistant Name Role Phone GOMEZ, DR MEJÍA Admitting Unavailable GOMEZ, DR MEJÍA Attending Unavailable GOMEZ, DR MEJÍA Primary Care Unavailable GOMEZ, DR MEJÍA Admitting Unavailable GOMEZ, DR MEJÍA Attending Unavailable GOMEZ, DR MEJÍA Primary Care Unavailable GOMEZ, DR MEJÍA Consulting Unavailable CASE, MARYBETH Ocampo Admitting Unavailable CASE, MARYBETH Ocampo Attending Unavailable AYAN TOMPKINS Referring Unavailable JACKY ESPINOZA Consulting Unavailable FISHCOLIN Consulting Unavailable PROVIDER, UNKNOWN Attending Unavailable PROVIDER, UNKNOWN Admitting Unavailable TRINITY ARCHULETA Attending Unavailable KYM DYER Referring Unavailable KYM DYER Primary Care Unavailable Allergies Allergy Classification Reported Allergen(s) Allergy Type Date of Onset Reaction(s) Facility (2 sources) yellow jacket venom protein Drug Allergy [facility] Repository Problems Problem Classification Problem Date Documented Date Episodic/Chronic Congestive heart failure; nonhypertensive (1 source) Unspecified diastolic (congestive) heart failure; Translations: [UNSPECIFIED DIASTOLIC HEART FAILURE] Onset: 2 Chronic Diabetes mellitus without complication (2 sources) Other abnormal glucose; Translations: [OTHER ABNORMAL GLUCOSE] Onset: 2 Episodic Disorders of lipid metabolism (1 source) Pure hypercholesterolemia, unspecified; Translations: [PURE HYPERCHOLESTEROLEMIA UNSPEC] Onset: 2 Chronic Essential hypertension (2 sources) Essential (primary) hypertension; Translations: [ESSENTIAL PRIMARY HYPERTENSION] Onset: 2 Chronic Hypertension with complications and secondary hypertension (1 source) Hypertensive heart disease with heart failure; Translations: [HTN HEART DISEASE W/HEART FAIL] Onset: 2 Chronic Other lower respiratory disease (1 source) Shortness of breath; Translations: [Shortness of breath] Onset: 4 Episodic Other lower respiratory disease (1 source) Shortness of breath Onset: 4 Episodic Other male genital disorders (1 source) Male erectile dysfunction, unspecified; Translations: [MALE ERECTILE DYSFUNCTION UNS] Onset: 2 Chronic Other screening for suspected conditions (not mental disorders or infectious disease) (6 sources) Elevated prostate specific antigen [PSA]; Translations: [Encounter for screening for malignant neoplasm of prostate] Onset: 2 Episodic Pulmonary heart disease (2 sources) Other pulmonary embolism without acute cor pulmonale; Translations: [Other pulmonary embolism without acute cor pulmonale] Onset: 4 Episodic Residual codes; unclassified (1 source) Pain, unspecified; Translations: [Pain, unspecified] Onset: 4 Episodic Unclassified (1 source) PE Onset: 4 Unclassified (1 source) Hospital Follow-up Onset: 4 Results Test Name Value Interpretation Reference Range Facility CBC AND AUTO DIFFon 02-05-20 24 ABSOLUTE BASOPHIL 0.1 X10E9/L Normal 0.0-0.2 [facility] Comment on above: Performed By: #### C BCA, CMP, PINR, 64460-1 #### [facility] ([id number]) [address], [address] [place] [address] ABSOLUTE NEUTROPHIL 4.9 X10E9/L Normal 1.5-6.6 [facility] Comment on above: Performed By: #### C BCA, CMP, PINR, 77771-0 #### [facility] ([id number]) [address], [address] [place] [address] Basophils/100 WBC (Bld) 0.7 % Normal [facility] Comment on above: Performed By: #### C BCA, CMP, PINR, 37674-4 #### [facility] ([id number]) [address], [address] [place] [address] Eosinophils (Bld) [#/Vol] 0.1 10*3/uL Normal 0.0-0.4 [facility] Comment on above: Performed By: #### C BCA, CMP, PINR, 79295-2 #### [facility] ([id number]) [address] [address] [place] [address] Eosinophils/100 WBC (Bld) 0.7 % Normal [facility] Comment on above: Performed By: #### C BCA, CMP, PINR, 54083-9 #### [facility] ([id number]) [address], [address] [place] [address] Erythrocyte distribution width (RBC) [Ratio] 13.1 % Normal 11.5-15.0 [facility] Comment on above: Performed By: #### C BCA, CMP, PINR, 85370-7 #### [facility] ([id number]) [address], [facility] [address] [place] [address] Hematocrit (Bld) [Volume fraction] 36.1 % Low 39-49 [facility] Comment on above: Performed By: #### C BCA, CMP, PINR, 98309-1 #### [facility] ([id number]) [address] [address] [place] [address] Hemoglobin (Bld) [Mass/Vol] 12.4 g/dL Low 13.0-17.0 [facility] Comment on above: Performed By: #### C BCA, CMP, PINR, 13633-2 #### [facility] ([id number]) [address] [address] [place] [address] Lymphocytes (Bld) [#/Vol] 1.9 10*3/uL Normal 1.0-3.5 [facility] Comment on above: Performed By: #### C BCA, CMP, PINR, 97104-0 #### [facility] ([id number]) [address] [address] [place] [address] Lymphocytes/100 WBC (Bld) 24.7 % Normal [facility] Comment on above: Performed By: #### C BCA, CMP, PINR, 24539-1 #### [facility] ([id number]) [address], [address] [place] [address] MCH (RBC) [Entitic mass] 31.6 pg Normal 27-34 [facility] Comment on above: Performed By: #### C BCA, CMP, PINR, 20598-0 #### [facility] ([id number]) [address], [address] [place] [address] MCHC (RBC) [Mass/Vol] 34.5 g/dL Normal 32-36 [facility] Comment on above: Performed By: #### C BCA, CMP, PINR, 38223-2 #### [facility] ([id number]) [address], [address] [place] [address] MCV (RBC) [Entitic vol] 92 fL Normal 80-100 [facility] Comment on above: Performed By: #### C BCA, CMP, PINR, 45393-4 #### [facility] ([id number]) [address], [address] [place] [address] Monocytes (Bld) [#/Vol] 0.7 10*3/uL Normal 0-0.9 [facility] Comment on above: Performed By: #### C BCA, CMP, PINR, 05673-1 #### [facility] ([id number]) [address], [address] [place] [address] Monocytes/100 WBC (Bld) 8.8 % Normal [facility] Comment on above: Performed By: #### C BCA, CMP, PINR, 75259-3 #### [facility] ([id number]) [address], [address] [place] [address] Neutrophils/100 WBC (Bld) 65.1 % Normal [facility] Comment on above: Performed By: #### C BCA, CMP, PINR, 71384-3 #### [facility] ([id number]) [address], [address] [place] [address] Platelet mean volume (Bld) [Entitic vol] 8.3 fL Normal 7-12 [facility] Comment on above: Performed By: #### C BCA, CMP, PINR, 94562-3 #### [facility] ([id number]) [address], [address] [place] [address] Platelets (Bld) [#/Vol] 161 10*3/uL Normal 150-450 [facility] Comment on above: Performed By: #### C BCA, CMP, PINR, 38786-3 #### [facility] ([id number]) [address] [address] [place] [address] RBC COUNT 3.94 X10E12/L Low 4.10-5.70 [facility] Comment on above: Performed By: #### C BCA, CMP, PINR, 67757-0 #### [facility] ([id number]) [address] [address] [place] [address] WBC (Bld) [#/Vol] 7.6 10*3/uL Normal 4.0-11.0 [facility] Comment on above: Performed By: #### C BCA, CMP, PINR, 21951-5 #### [facility] ([id number]) [address], [address] [place] [address] COMPREHENSIVE METABOLIC PANE Luciano 02-05-2024 Albumin [Mass/Vol] 3.4 g/dL Normal 3.2-5.3 [facility] Comment on above: Performed By: #### C BCA, CMP, PINR, 12805-6 #### [facility] ([id number]) [address], [address] [place] [address] ALP [Catalytic activity/Vol] 66 U/L Normal 39-130 [facility] Comment on above: Performed By: #### C BCA, CMP, PINR, 14885-1 #### [facility] ([id number]) [address], [address] [place] [address] ALT [Catalytic activity/Vol] 27 U/L Normal 0-40 [facility] Comment on above: Performed By: #### C BCA, CMP, PINR, 51271-3 #### [facility] ([id number]) [address], [address] [place] [address] Anion gap [Moles/Vol] 8 mmol/L Normal 5-15 [facility] Comment on above: Performed By: #### C BCA, CMP, PINR, 70902-8 #### [facility] ([id number]) [address], [address] [place] [address] AST [Catalytic activity/Vol] 24 U/L Normal 0-41 [facility] Comment on above: Performed By: #### C BCA, CMP, PINR, 73044-1 #### [facility] ([id number]) [address], [address] [place] [address] Bilirubin [Mass/Vol] 0.5 mg/dL Normal 0.3-1.2 [facility] Comment on above: Performed By: #### C BCA, CMP, PINR, 82688-1 #### [facility] ([id number]) [address], [address] [place] [address] Calcium [Mass/Vol] 8.3 mg/dL Low 8.5-10.5 [facility] Comment on above: Performed By: #### C BCA, CMP, PINR, 94405-3 #### [facility] ([id number]) [address], [address] [place] [address] Chloride [Moles/Vol] 105 mmol/L Normal 98-109 [facility] Comment on above: Performed By: #### C BCA, CMP, PINR, 35290-6 #### [facility] ([id number]) [address], [address] [place] [address] CO2 [Moles/Vol] 27 mmol/L Normal 22-32 [facility] Comment on above: Performed By: #### C BCA, CMP, PINR, 12075-5 #### [facility] ([id number]) [address], [address] [place] [address] Creatinine [Mass/Vol] 1.08 mg/dL Normal 0.60-1.30 [facility] Comment on above: Result Comment: METH OD TRACEABLE TO IDMS STANDARD Performed By: #### C BCA, CMP, PINR, 75929-1 #### [facility] ([id number]) [address] [address] [place] [address] GFR/1.73 sq M.predicted among non-blacks MDRD (S/P/Bld) [Vol rate/Area] 69 mL/min/{1.73_m2} Normal >59 [facility] Comment on above: Result Comment: Reported eGFR is based on the CKD-EPI 2020 equation that does not use a race coefficient. Performed By: #### C BCA, CMP, PINR, 41123-6 #### [facility] ([id number]) [address] [address] [place] [address] Glucose [Mass/Vol] 111 mg/dL High 65-99 [facility] Comment on above: Performed By: #### C BCA, CMP, PINR, 11722-3 #### [facility] ([id number]) [address] [address] [place] [address] Potassium [Moles/Vol] 4.0 mmol/L Normal 3.5-5.0 [facility] Comment on above: Performed By: #### C BCA, CMP, PINR, 61439-9 #### [facility] ([id number]) [address], [address] [place] [address] Protein [Mass/Vol] 5.9 g/dL Low 6.0-8.0 [facility] Comment on above: Performed By: #### C BCA, CMP, PINR, 78649-6 #### [facility] ([id number]) [address], [address] [place] [address] Sodium [Moles/Vol] 140 mmol/L Normal 134-146 [facility] Comment on above: Performed By: #### C BCA, CMP, PINR, 08235-6 #### [facility] ([id number]) [address], [address] [place] [address] Urea nitrogen [Mass/Vol] 25 mg/dL Normal 5-27 [facility] Comment on above: Performed By: #### C BCA, CMP, PINR, 39559-7 #### [facility] ([id number]) [address], [address] [place] [address] Heparin unfractionated Chrom ogenic method Qn (PPP)on 02-05-2024 ANTI XA UFH 0.27 IU/mL Low 0.30-0.70 [facility] Comment on above: Result Comment: Opti mal time for testing is 6 hrs post dosage This test is specific for monitoring patients on UFH, and is not recommended for use with other Anti-Xa medications. Performed By: #### C BCA, CMP, PINR, 52976-5 #### [facility] ([id number]) [address], [address] [place] [address] CBC AND AUTO DIFFon 02-04-20 24 ABSOLUTE BASOPHIL 0.0 X10E9/L Normal 0.0-0.2 [facility] Comment on above: Performed By: #### C MP, CBCA, 48974-6, 2777-1, 82053-7 #### [facility] ([id number]) [address], [address] [place] [address] ABSOLUTE NEUTROPHIL 8.8 X10E9/L High 1.5-6.6 [facility] Comment on above: Performed By: #### C MP, CBCA, , 2776-, 54385-7 #### [facility] ([id number]) [address], [address] [place] [address] Basophils/100 WBC (Bld) 0.3 % Normal [facility] Comment on above: Performed By: #### C MP, CBCA, , 2776-, 35865-7 #### [facility] ([id number]) [address], [address] [place] [address] Eosinophils (Bld) [#/Vol] 0.0 10*3/uL Normal 0.0-0.4 [facility] Comment on above: Performed By: #### C MP, CBCA, , 2776-, 72820-8 #### [facility] ([id number]) [address], [address] [place] [address] Eosinophils/100 WBC (Bld) 0.0 % Normal [facility] Comment on above: Performed By: #### C MP, CBCA, , 2776-05, 13545-4 #### [facility] ([id number]) [address], [address] [place] [address] Erythrocyte distribution width (RBC) [Ratio] 13.5 % Normal 11.5-15.0 [facility] Comment on above: Performed By: #### C MP, CBCA, , 2776-, 60205-9 #### [facility] ([id number]) [address], [address] [place] [address] Hematocrit (Bld) [Volume fraction] 40.7 % Normal 39-49 [facility] Comment on above: Performed By: #### C MP, CBCA, 65754-8, 2776-, 17537-2 #### [facility] ([id number]) [address], [address] [place] [address] Hemoglobin (Bld) [Mass/Vol] 14.1 g/dL Normal 13.0-17.0 [facility] Comment on above: Performed By: #### C MP, CBCA, 50412-0, 2776-, 45387-6 #### [facility] ([id number]) [address], [facility] [address] [place] [address] Lymphocytes (Bld) [#/Vol] 1.3 10*3/uL Normal 1.0-3.5 [facility] Comment on above: Performed By: #### C MP, CBCA, 71049-1, 2776-05, 06260-8 #### [facility] ([id number]) [address] [address] [place] [address] Lymphocytes/100 WBC (Bld) 11.7 % Normal [facility] Comment on above: Performed By: #### C MP, CBCA, , 2776-05, 43495-3 #### [facility] ([id number]) [address], [facility] [address] [place] [address] MCH (RBC) [Entitic mass] 31.6 pg Normal 27-34 [facility] Comment on above: Performed By: #### C MP, CBCA, , 27711-19, 65318-3 #### [facility] ([id number]) [address] [address] [place] [address] MCHC (RBC) [Mass/Vol] 34.7 g/dL Normal 32-36 [facility] Comment on above: Performed By: #### C MP, CBCA, , 2776-, 93833-0 #### [facility] ([id number]) [address] [address] [place] [address] MCV (RBC) [Entitic vol] 91 fL Normal 80-100 [facility] Comment on above: Performed By: #### C MP, CBCA, 61202-7, 2776-1, 21667-8 #### [facility] ([id number]) [address], [address] [place] [address] Monocytes (Bld) [#/Vol] 0.9 10*3/uL Normal 0-0.9 [facility] Comment on above: Performed By: #### C MP, CBCA, 82418-8, 2776-1, 35092-0 #### [facility] ([id number]) [address], [address] [place] [address] Monocytes/100 WBC (Bld) 8.1 % Normal [facility] Comment on above: Performed By: #### C MP, CBCA, 50756-6, 2776-, 97049-3 #### [facility] ([id number]) [address], [address] [place] [address] Neutrophils/100 WBC (Bld) 79.9 % Normal [facility] Comment on above: Performed By: #### C MP, CBCA, 72335-8, 2776-, 25209-4 #### [facility] ([id number]) [address], [address] [place] [address] Platelet mean volume (Bld) [Entitic vol] 8.1 fL Normal 7-12 [facility] Comment on above: Performed By: #### C MP, CBCA, 63070-5, 2776-1, 24964-1 #### [facility] ([id number]) [address], [address] [place] [address] Platelets (Bld) [#/Vol] 182 10*3/uL Normal 150-450 [facility] Comment on above: Performed By: #### C MP, CBCA, 33477-4, 2776-1, 40423-5 #### [facility] ([id number]) [address], [address] [place] [address] RBC COUNT 4.46 X10E12/L Normal 4.10-5.70 [facility] Comment on above: Performed By: #### C MP, CBCA, 19100-5, 2777-1, 30898-8 #### [facility] ([id number]) [address], [address] [place] [address] WBC (Bld) [#/Vol] 11.0 10*3/uL Normal 4.0-11.0 [facility] Comment on above: Performed By: #### C CHINYERE, CBCA, 20902-2, 2777-, 07813-4 #### [facility] ([id number]) [address], [address] [place] [address] COMPREHENSIVE METABOLIC PANE Luciano 02-04-2024 Albumin [Mass/Vol] 3.7 g/dL Normal 3.2-5.3 [facility] Comment on above: Performed By: #### C CHINYERE, CBCA, 58748-6, 2777-1, 97410-0 #### [facility] ([id number]) [address], [address] [place] [address] ALP [Catalytic activity/Vol] 76 U/L Normal 39-130 [facility] Comment on above: Performed By: #### C MP, CBCA, 95770-5, 2777-1, 63994-1 #### [facility] ([id number]) [address], [address] [place] [address] ALT [Catalytic activity/Vol] 21 U/L Normal 0-40 [facility] Comment on above: Performed By: #### C MP, CBCA, 80562-4, 2777-1, 79720-0 #### [facility] ([id number]) [address], [address] [place] [address] Anion gap [Moles/Vol] 14 mmol/L Normal 5-15 [facility] Comment on above: Performed By: #### C CHINYERE, CBCA, 01917-3, 2776-, 02361-6 #### [facility] ([id number]) [address], [address] [place] [address] AST [Catalytic activity/Vol] 18 U/L Normal 0-41 [facility] Comment on above: Performed By: #### C MP, CBCA, 49006-1, 2776-, 71276-7 #### [facility] ([id number]) [address], [address] [place] [address] Bilirubin [Mass/Vol] 0.7 mg/dL Normal 0.3-1.2 [facility] Comment on above: Performed By: #### C CHINYERE, CBCA, , 2776-, 44918-5 #### [facility] ([id number]) [address], [address] [place] [address] Calcium [Mass/Vol] 9.2 mg/dL Normal 8.5-10.5 [facility] Comment on above: Performed By: #### C CHINYERE, CBCA, , 2776-05, 98897-1 #### [facility] ([id number]) [address], [address] [place] [address] Chloride [Moles/Vol] 104 mmol/L Normal 98-109 [facility] Comment on above: Performed By: #### C MP, CBCA, 51128-5, 2776-, 96460-7 #### [facility] ([id number]) [address], [address] [place] [address] CO2 [Moles/Vol] 22 mmol/L Normal 22-32 [facility] Comment on above: Performed By: #### C MP, CBCA, 78247-5, 2776-, 16779-4 #### [facility] ([id number]) [address], [address] [place] [address] Creatinine [Mass/Vol] 1.27 mg/dL Normal 0.60-1.30 [facility] Comment on above: Result Comment: METH OD TRACEABLE TO IDMS STANDARD Performed By: #### C PAOLA WHITLOCKA, , 277-, 91514-4 #### [facility] ([id number]) [address], [facility] [address] [place] [address] GFR/1.73 sq M.predicted among non-blacks MDRD (S/P/Bld) [Vol rate/Area] 57 mL/min/{1.73_m2} Low >59 [facility] Comment on above: Result Comment: Reported eGFR is based on the CKD-EPI 2020 equation that does not use a race coefficient. Performed By: #### C CHINYERE CBCA, , 2776-, 43646-8 #### [facility] ([id number]) [address] [address] [place] [address] Glucose [Mass/Vol] 148 mg/dL High 65-99 [facility] Comment on above: Performed By: #### C HELLEN WHITLOCK, , 2777-, 03440-4 #### [facility] ([id number]) [address] [address] [place] [address] Potassium [Moles/Vol] 4.5 mmol/L Normal 3.5-5.0 [facility] Comment on above: Performed By: #### C CHINYERE CBCA, , 2776-05, 76876-1 #### [facility] ([id number]) [address], [address] [place] [address] Protein [Mass/Vol] 6.0 g/dL Normal 6.0-8.0 [facility] Comment on above: Performed By: #### C CHINYERE CBCA, 26601-7, 2777-1, 26413-6 #### [facility] ([id number]) [address] [address] Sodium [Moles/Vol] 140 mmol/L Normal 134-146 [facility] Comment on above: Performed By: #### C MP, CBCA, 27669-5, 2777-1, 36972-2 #### [facility] ([id number]) [address] [address] Urea nitrogen [Mass/Vol] 23 mg/dL Normal 5-27 [facility] Comment on above: Performed By: #### C MP, CBCA, 88491-9, 2777-1, 07988-7 #### [facility] ([id number]) [address] [address] Heparin unfractionated Chrom ogenic method Qn (PPP)on 02-04-2024 ANTI XA UFH 0.30 IU/mL Normal 0.30-0.70 [facility] Comment on above: Result Comment: Opti mal time for testing is 6 hrs post dosage This test is specific for monitoring patients on UFH, and is not recommended for use with other Anti-Xa medications. Performed By: #### C BCA, CMP, PINR, 91686-3 #### [facility] ([id number]) [address] [address] ANTI XA UFH 0.40 IU/mL Normal 0.30-0.70 [facility] Comment on above: Result Comment: Opti mal time for testing is 6 hrs post dosage This test is specific for monitoring patients on UFH, and is not recommended for use with other Anti-Xa medications. Performed By: #### C BCA, CMP, PINR, 35731-1 #### [facility] ([id number]) [address] [address] [place] [address] MAGNESIUMon 02-04-2024 Magnesium [Mass/Vol] 1.9 mg/dL Normal 1.8-2.6 [facility] Comment on above: Performed By: #### C CHINYERE, CBCA, 57840-3, 2777-1, 99935-1 #### [facility] ([id number]) [address] [place] [address] Magnesium Ionized ISE (Bld) [Moles/Vol]on 02-04-2024 Magnesium [Moles/Vol] 0.72 mmol/L Normal 0.45-0.74 [facility] Comment on above: Result Comment: NEW REFERENCE RANGE Performed By: #### C BCA, CMP, PINR, 73298-0 #### [facility] ([id number]) [address] [place] [address] PHOSPHORUSon 02-04-2024 Phosphate [Mass/Vol] 4.1 mg/dL Normal 2.4-4.9 [facility] Comment on above: Performed By: #### C CHINYERE, CBCA, 10249-6, 2777-1, 25153-0 #### [facility] ([id number]) [address], [address] [place] [address] Troponin I.cardiac High sens itivity method [Mass/Vol]on 02-04-2024 3 HOUR TROP I, HIGH SENSITIVITY 342 ng/L High <21 [facility] Comment on above: Result Comment: Elevations of hs-Troponin may be due to causes other than myocardial ischemia. Recommend serial hs-Troponin testing be performed. For the initial evaluation and management of chest pain patients, refer to the algorithms linked below. Emergency Patient: [email or web address] Inpatient: [email or web address] Performed By: #### C BCA, CMP, PINR, 77262-4 #### [facility] ([id number]) [address], [address] [place] [address] ACT Diatomaceous earth induc ed (Bld)on 02-03-2024 [facility] CLOT TIME LR 252 sec High 89-169 [facility] Comment on above: Performed By: #### C BCA, CMP, PINR, 70472-6 #### [facility] ([id number]) [address], [address] [place] [address] CBC AND AUTO DIFFon 02-03-20 24 ABSOLUTE BASOPHIL 0.2 X10E9/L Normal 0.0-0.2 [facility] Comment on above: Performed By: #### C BCA, CMP, PINR, 78430-1 #### [facility] ([id number]) [address] [address] [place] [address] ABSOLUTE NEUTROPHIL 6.6 X10E9/L Normal 1.5-6.6 [facility] Comment on above: Performed By: #### C BCA, CMP, PINR, 09269-3 #### [facility] ([id number]) [address], [address] [place] [address] Basophils/100 WBC (Bld) 2.3 % Normal [facility] Comment on above: Performed By: #### C BCA, CMP, PINR, 19038-2 #### [facility] ([id number]) [address], [address] [place] [address] Eosinophils (Bld) [#/Vol] 0.0 10*3/uL Normal 0.0-0.4 [facility] Comment on above: Performed By: #### C BCA, CMP, PINR, 56922-5 #### [facility] ([id number]) [address], [address] [place] [address] Eosinophils/100 WBC (Bld) 0.2 % Normal [facility] Comment on above: Performed By: #### C BCA, CMP, PINR, 73862-2 #### [facility] ([id number]) [address] [address] [place] [address] Erythrocyte distribution width (RBC) [Ratio] 13.8 % Normal 11.5-15.0 [facility] Comment on above: Performed By: #### C BCA, CMP, PINR, 11634-0 #### [facility] [facility] ([id number]) [address], [address] [place] [address] Hematocrit (Bld) [Volume fraction] 47.4 % Normal 39-49 [facility] Comment on above: Performed By: #### C BCA, CMP, PINR, 59203-5 #### [facility] ([id number]) [address] [address] [place] [address] Hemoglobin (Bld) [Mass/Vol] 16.2 g/dL Normal 13.0-17.0 [facility] Comment on above: Performed By: #### C BCA, CMP, PINR, 91554-4 #### [facility] ([id number]) [address] [address] [place] [address] Lymphocytes (Bld) [#/Vol] 2.2 10*3/uL Normal 1.0-3.5 [facility] Comment on above: Performed By: #### C BCA, CMP, PINR, 38623-5 #### [facility] ([id number]) [address], [address] [place] [address] Lymphocytes/100 WBC (Bld) 22.9 % Normal [facility] Comment on above: Performed By: #### C BCA, CMP, PINR, 41191-8 #### [facility] ([id number]) [address], [address] [place] [address] MCH (RBC) [Entitic mass] 30.9 pg Normal 27-34 [facility] Comment on above: Performed By: #### C BCA, CMP, PINR, 39113-6 #### [facility] ([id number]) [address], [address] [place] [address] MCHC (RBC) [Mass/Vol] 34.2 g/dL Normal 32-36 [facility] Comment on above: Performed By: #### C BCA, CMP, PINR, 42836-8 #### [facility] ([id number]) [address], [address] [place] [address] MCV (RBC) [Entitic vol] 90 fL Normal 80-100 [facility] Comment on above: Performed By: #### C BCA, CMP, PINR, 11783-2 #### [facility] ([id number]) [address], [address] [place] [address] Monocytes (Bld) [#/Vol] 0.6 10*3/uL Normal 0-0.9 [facility] Comment on above: Performed By: #### C BCA, CMP, PINR, 59616-6 #### [facility] ([id number]) [address], [address] [place] [address] Monocytes/100 WBC (Bld) 6.4 % Normal [facility] Comment on above: Performed By: #### C BCA, CMP, PINR, 11208-7 #### [facility] ([id number]) [address], [address] [place] [address] Neutrophils/100 WBC (Bld) 68.2 % Normal [facility] Comment on above: Performed By: #### C BCA, CMP, PINR, 91693-9 #### [facility] ([id number]) [address], [address] [place] [address] Platelet mean volume (Bld) [Entitic vol] 7.7 fL Normal 7-12 [facility] Comment on above: Performed By: #### C BCA, CMP, PINR, 18252-0 #### [facility] ([id number]) [address], [address] [place] [address] Platelets (Bld) [#/Vol] 189 10*3/uL Normal 150-450 [facility] Comment on above: Performed By: #### C BCA, CMP, PINR, 08237-9 #### [facility] ([id number]) [address], [address] [place] [address] RBC COUNT 5.26 X10E12/L Normal 4.10-5.70 [facility] Comment on above: Performed By: #### C BCA, CMP, PINR, 66202-5 #### [facility] ([id number]) [address], [address] [place] [address] WBC (Bld) [#/Vol] 9.6 10*3/uL Normal 4.0-11.0 [facility] Comment on above: Performed By: #### C BCA, CMP, PINR, 74351-1 #### [facility] ([id number]) [address], [address] [place] [address] COMPREHENSIVE METABOLIC PANE Luciano 02-03-2024 Albumin [Mass/Vol] 4.2 g/dL Normal 3.2-5.3 [facility] Comment on above: Performed By: #### C BCA, CMP, PINR, 27999-2 #### [facility] ([id number]) [address], [address] [place] [address] ALP [Catalytic activity/Vol] 86 U/L Normal 39-130 [facility] Comment on above: Performed By: #### C BCA, CMP, PINR, 55233-9 #### [facility] ([id number]) [address], [address] [place] [address] ALT [Catalytic activity/Vol] 24 U/L Normal 0-40 [facility] Comment on above: Performed By: #### C BCA, CMP, PINR, 60024-1 #### [facility] ([id number]) [address], [address] [place] [address] Anion gap [Moles/Vol] 12 mmol/L Normal 5-15 [facility] Comment on above: Performed By: #### C BCA, CMP, PINR, 49652-8 #### [facility] ([id number]) [address], [address] [place] [address] AST [Catalytic activity/Vol] 19 U/L Normal 0-41 [facility] Comment on above: Performed By: #### C BCA, CMP, PINR, 37865-5 #### [facility] ([id number]) [address], [address] [place] [address] Bilirubin [Mass/Vol] 0.6 mg/dL Normal 0.3-1.2 [facility] Comment on above: Performed By: #### C BCA, CMP, PINR, 50863-8 #### [facility] ([id number]) [address], [address] [place] [address] Calcium [Mass/Vol] 9.2 mg/dL Normal 8.5-10.5 [facility] Comment on above: Performed By: #### C BCA, CMP, PINR, 06685-1 #### [facility] ([id number]) [address], [address] [place] [address] Chloride [Moles/Vol] 105 mmol/L Normal 98-109 [facility] Comment on above: Performed By: #### C BCA, CMP, PINR, 07850-8 #### [facility] ([id number]) [address], [address] [place] [address] CO2 [Moles/Vol] 24 mmol/L Normal 22-32 [facility] Comment on above: Performed By: #### C BCA, CMP, PINR, 62466-4 #### [facility] ([id number]) [address] [address] [place] [address] Creatinine [Mass/Vol] 1.13 mg/dL Normal 0.60-1.30 [facility] Comment on above: Result Comment: METH OD TRACEABLE TO IDMS STANDARD Performed By: #### C BCA, CMP, PINR, 82532-1 #### [facility] ([id number]) [address], [facility] [address] [place] [address] GFR/1.73 sq M.predicted among non-blacks MDRD (S/P/Bld) [Vol rate/Area] 65 mL/min/{1.73_m2} Normal >59 [facility] Comment on above: Result Comment: Reported eGFR is based on the CKD-EPI 2020 equation that does not use a race coefficient. Performed By: #### C BCA, CMP, PINR, 20231-1 #### [facility] ([id number]) [address] [address] [place] [address] Glucose [Mass/Vol] 130 mg/dL High 65-99 [facility] Comment on above: Performed By: #### C BCA, CMP, PINR, 82680-4 #### [facility] ([id number]) [address] [address] Potassium [Moles/Vol] 4.4 mmol/L Normal 3.5-5.0 [facility] Comment on above: Performed By: #### C BCA, CMP, PINR, 89055-7 #### [facility] ([id number]) [address] [address] [place] [address] Protein [Mass/Vol] 7.0 g/dL Normal 6.0-8.0 [facility] Comment on above: Performed By: #### C BCA, CMP, PINR, 94252-3 #### [facility] ([id number]) [address] [address] [place] [address] Sodium [Moles/Vol] 141 mmol/L Normal 134-146 [facility] Comment on above: Performed By: #### C BCA, CMP, PINR, 76071-9 #### [facility] ([id number]) [address], [address] [place] [address] Urea nitrogen [Mass/Vol] 20 mg/dL Normal 5-27 [facility] Comment on above: Performed By: #### C BCA, CMP, PINR, 72183-7 #### [facility] ([id number]) [address], [facility] [address] [place] [address] Glucose Glucometer (BldC) [M ass/Vol]on 02-03-2024 Glucose [Mass/Vol] 136 mg/dL High 65-99 [facility] Heparin unfractionated Chrom ogenic method Qn (PPP)on 02-03-2024 ANTI XA UFH 0.79 IU/mL High 0.30-0.70 [facility] Comment on above: Result Comment: Opti mal time for testing is 6 hrs post dosage This test is specific for monitoring patients on UFH, and is not recommended for use with other Anti-Xa medications. Performed By: #### 3 274-8 #### [facility] ([id number]) [address], [facility] [address] [place] [address] PROTIME AND INRon 02-03-2024 INR Coag (PPP) [Relative time] 1.2 {INR} High 0.8-1.1 [facility] Comment on above: Performed By: #### C BCA, CMP, PINR, 80327-4 #### [facility] ([id number]) [address], [address] [place] [address] PT Coag (PPP) [Time] 13.4 s High 9.8-13.2 [facility] Comment on above: Performed By: #### C BCA, CMP, PINR, 04556-1 #### [facility] ([id number]) [address], [address] [place] [address] aPTT Coag (PPP) [Time]on aPTT Coag (Bld) [Time] 94 s High 26-37 [facility] Comment on above: Performed By: #### C BCA, CMP, PINR, 63756-1 #### [facility] ([id number]) [address], [address] [place] [address] PSA, FREE AND TOTAL RATIOon 05-11-2022 % Free PSA 16.1 % Normal [facility] Comment on above: Result Comment: The table [...] men. Performed By: #### P SAFREE #### [facility] [address] [place] [address] Dr. Wicho Allred Prostate specific Ag [Mass/Vol] 4.4 ng/mL Critically high 0.0-4.0 [facility] Comment on above: Result Comment: Prema POLLOCK methodology. . According to the [place] [employer], Serum PSA should decrease and [...] disease. Performed By: #### P SAFREE #### [facility] [address] [address] [address] Wicho Allred PSA, Free 0.71 ng/mL Normal N/A [facility] Comment on above: Result Comment: Prema POLLOCK methodology. Performed By: #### P SAFREE #### [facility] [address] [place] [address] Dr. Wicho Allred INSULINon 05-10-2022 Insulin 22.8 uIU/mL Normal 2.6-24.9 [facility] Comment on above: Performed By: #### I NSULIN #### [facility] [address] [place] [address] Dr. Wicho Allred BNPon 05-09-2022 Natriuretic peptide B (Bld) [Mass/Vol] 160.0 pg/mL Normal <=1,800.0 [facility] Comment on above: Performed By: #### L IPID, URIC, BNP, CMP, TSH, T7 #### [facility] [address] [place] [address] Dr. Wicho Allred CBC AUTO DIFFon 05-09-2022 BASO # 0.1 103/ul Normal 0.0-0.1 [facility] Comment on above: Performed By: #### A 1C #### [facility] [address] [place] [address] Dr. Wicho Allred Basophils/100 WBC (Bld) 0.8 % Normal 0.2-2.0 [facility] Comment on above: Performed By: #### A 1C #### [facility] [address] [place] [address] Dr. Wicho Allred EO # 0.2 103/ul Normal 0.0-0.7 [facility] Comment on above: Performed By: #### A 1C #### [facility] [address] [place] [address] Dr. Wicho Allred Eosinophils/100 WBC (Bld) 3.3 % Normal 0.9-7.0 [facility] Comment on above: Performed By: #### A 1C #### [facility] [address] [place] [address] Dr. Wicho Allred Erythrocyte distribution width (RBC) [Ratio] 12.1 % Normal 11.0-15.0 [facility] Comment on above: Performed By: #### A 1C #### [facility] [address] [address] [address] Wicho Allred Hematocrit (Bld) [Volume fraction] 46.5 % Normal 42.0-54.0 [facility] Comment on above: Performed By: #### A 1C #### [facility] [address] [address] [address] Wicho Allred Hemoglobin (Bld) [Mass/Vol] 15.8 g/dL Normal 14.0-18.0 [facility] Comment on above: Performed By: #### A 1C #### [facility] [address] [address] [address] Wicho Allred IG # 0.02 10e3/ul Normal 0.00-0.03 [facility] Comment on above: Performed By: #### A 1C #### [facility] [address] [address] [address] Wicho Allred IG % 0.3 % Normal 0.0-0.5 [facility] Comment on above: Performed By: #### A 1C #### [facility] [address] [address] [address] Wicho Allred LYMPH # 1.6 103/ul Normal 1.2-3.8 [facility] Comment on above: Performed By: #### A 1C #### [facility] [address] [address] [address] Wicho Allred Lymphocytes/100 WBC (Bld) 25.7 % Normal 20.5-60.0 [facility] Comment on above: Performed By: #### A 1C #### [facility] [address] [address] [address] Wicho Allred MANUAL DIFF REQ NO Normal [facility] Comment on above: Performed By: #### A 1C #### [facility] [address] [place] [address] Dr. Wicho Allred MCH (RBC) [Entitic mass] 31.0 pg Normal 25.9-34.0 [facility] Comment on above: Performed By: #### A 1C #### [facility] [address] [address] [address] Wicho Allred MCHC (RBC) [Mass/Vol] 34.0 g/dL Normal 29.9-35.2 [facility] Comment on above: Performed By: #### A 1C #### [facility] [address] [address] [address] Wicho Allred MCV (RBC) [Entitic vol] 91.4 fL Normal 80.0-94.0 [facility] Comment on above: Performed By: #### A 1C #### [facility] [address] [address] [address] Wicho Allred MONO # 0.5 103/ul Normal 0.3-0.8 [facility] Comment on above: Performed By: #### A 1C #### [facility] [address] [place] [address] Dr. Wicho Allred Monocytes/100 WBC (Bld) 7.4 % Normal 1.7-12.0 [facility] Comment on above: Performed By: #### A 1C #### [facility] [address] [place] [address] Dr. Wicho Allred NEUT # 4.0 103/ul Normal 1.4-6.5 [facility] Comment on above: Performed By: #### A 1C #### [facility] [address] [place] [address] Dr. Wicho Allred Neutrophils/100 WBC (Bld) 62.5 % Normal 43.0-75.0 [facility] Comment on above: Performed By: #### A 1C #### [facility] [address] [place] [address] Dr. Wicho Allred Platelet mean volume (Bld) [Entitic vol] 9.4 fL Critically low 9.5-13.5 [facility] Comment on above: Performed By: #### A 1C #### [facility] [address] [place] [address] Dr. Wicho Allred PLT 238 103/ul Normal 150-450 [facility] Comment on above: Performed By: #### A 1C #### [facility] [address] [address] [address] Wicho Allred RBC 5.09 106/ul Normal 4.70-6.10 [facility] Comment on above: Performed By: #### A 1C #### [facility] [address] [place] [address] Dr. Wicho Allred WBC 6.4 103/ul Normal 4.0-11.0 [facility] Comment on above: Performed By: #### A 1C #### [facility] [address] [place] [address] Dr. Wicho Allred FREE THYROXINE INDEX T7on FTI 2.07 Normal 1.30-4.50 [facility] Comment on above: Performed By: #### L IPID, URIC, BNP, CMP, TSH, T7 #### [facility] [address] [place] [address] Dr. Wicho Allred T3U 35.0 % Normal 33.0-40.0 [facility] Comment on above: Performed By: #### L IPID, URIC, BNP, CMP, TSH, T7 #### [facility] [address] [place] [address] Dr. Wicho Allred T4 [Mass/Vol] 5.90 ug/dL Normal 4.50-12.10 [facility] Comment on above: Performed By: #### L IPID, URIC, BNP, CMP, TSH, T7 #### [facility] [address] [place] [address] Dr. Wicho Allred GLYCOHEMOGLOBIN A1Con 2021 ADA RECOMMENDATION SEE BELOW Normal [facility] Comment on above: Result Comment: ADA RECOMMENDED LIMIT 4.0 - 6.0 ADA THERAPEUTIC TARGET < 7.0 ACTION SUGGESTED > 7.0 Performed By: #### A 1C #### [facility] [address] [place] [address] Dr. Wicho Allred Glucose [Mass/Vol] 117 mg/dL Normal [facility] Comment on above: Performed By: #### A 1C #### [facility] [address] [place] [address] Dr. Wicho Allred HbA1c (Bld) [Mass fraction] 5.7 % Normal 4.5-6.2 [facility] Comment on above: Performed By: #### A 1C #### [facility] [address] [place] [address] Dr. Wicho Allred LIPID PROFILEon 05-09-2022 CHOL-HDL RATIO NORM SEE BELOW Normal [facility] Comment on above: Result Comment: 3.3 - 4.4 LOW RISK 4.4 - 7.1 AVERAGE RISK 7.1 - 11.0 MODERATE RISK >11.0 HIGH RISK Performed By: #### L IPID, URIC, BNP, CMP, TSH, T7 #### [facility] [address] [address] [address] Wicho Allred Cholesterol [Mass/Vol] 194 mg/dL Normal <=200 [facility] Comment on above: Performed By: #### L IPID, URIC, BNP, CMP, TSH, T7 #### [facility] [address] [place] [address] Dr. Wicho Allred Cholesterol in HDL [Mass/Vol] 50 mg/dL Normal 40-60 [facility] Comment on above: Performed By: #### L IPID, URIC, BNP, CMP, TSH, T7 #### [facility] [address] [place] [address] Dr. Wicho Allred Cholesterol in LDL [Mass/Vol] 113.0 mg/dL Normal [facility] Comment on above: Performed By: #### L IPID, URIC, BNP, CMP, TSH, T7 #### [facility] [address] [address] [address] Wicho Allred Cholesterol.total/Cho lesterol in HDL [Mass ratio] 3.9 {ratio} Normal [facility] Comment on above: Performed By: #### L IPID, URIC, BNP, CMP, TSH, T7 #### [facility] [address] [place] [address] Dr. Wicho Allred HDL NORMAL > or = 60 mg/dl - LOW CARDIOVASCULAR RISK <40 mg/dl - HIGH CARDIOVASCULAR RISK Normal [facility] Comment on above: Performed By: #### L IPID, URIC, BNP, CMP, TSH, T7 #### [facility] [address] [address] [address] Wicho Allred LDL CALC NORMAL SEE BELOW Normal [facility] Comment on above: Result Comment: <100 mg/dl OPTIMAL 100 - 129 mg/dl NEAR OR ABOVE OPTIMAL 130 - 159 mg/dl BORDERLINE HIGH 160 - 189 mg/dl HIGH >190 mg/dl VERY HIGH Performed By: #### L IPID, URIC, BNP, CMP, TSH, T7 #### [facility] [address] [address] [address] Wicho Allred Triglyceride [Mass/Vol] 155 mg/dL Critically high <=150 [facility] Comment on above: Performed By: #### L IPID, URIC, BNP, CMP, TSH, T7 #### [facility] [address] [address] [address] Wicho Allred VLDL CALC 31.0 mg/dL Normal [facility] Comment on above: Performed By: #### L IPID, URIC, BNP, CMP, TSH, T7 #### [facility] [address] [address] [address] Wicho Allred PROF 14(COMP METB)on 022 Albumin [Mass/Vol] 4.1 g/dL Normal 3.4-5.0 [facility] Comment on above: Performed By: #### L IPID, URIC, BNP, CMP, TSH, T7 #### [facility] [address] [address] [address] Wicho Allred Albumin/Globulin [Mass ratio] 1.1 {ratio} Normal [facility] Comment on above: Performed By: #### L IPID, URIC, BNP, CMP, TSH, T7 #### [facility] [address] [address] [address] Wicho Allred ALP [Catalytic activity/Vol] 86 U/L Normal 46-116 [facility] Comment on above: Performed By: #### L IPID, URIC, BNP, CMP, TSH, T7 #### [facility] [address] [address] [address] Wicho Allred ALT [Catalytic activity/Vol] 42 U/L Normal 16-63 [facility] Comment on above: Performed By: #### L IPID, URIC, BNP, CMP, TSH, T7 #### [facility] [address] [place] [address] Dr. Wicho Allred Anion gap [Moles/Vol] 11.5 mmol/L Normal Th e [facility] Comment on above: Performed By: #### L IPID, URIC, BNP, CMP, TSH, T7 #### [facility] [address] [place] [address] Dr. Wicho Allred AST [Catalytic activity/Vol] 30 U/L Normal 15-37 [facility] Comment on above: Performed By: #### L IPID, URIC, BNP, CMP, TSH, T7 #### [facility] [address] [place] [address] Dr. Wicho Allred Bilirubin [Mass/Vol] 0.5 mg/dL Normal 0.2-1.0 [facility] Comment on above: Performed By: #### L IPID, URIC, BNP, CMP, TSH, T7 #### [facility] [address] [place] [address] Dr. Wicho Allred Calcium [Mass/Vol] 9.1 mg/dL Normal 8.5-10.1 [facility] Comment on above: Performed By: #### L IPID, URIC, BNP, CMP, TSH, T7 #### [facility] [address] [place] [address] Dr. Wicho Allred Chloride [Moles/Vol] 103 mmol/L Normal 98-107 [facility] Comment on above: Performed By: #### L IPID, URIC, BNP, CMP, TSH, T7 #### [facility] [address] [place] [address] Dr. Wicho Allred CO2 [Moles/Vol] 31.0 mmol/L Normal 21.0-32.0 [facility] Comment on above: Performed By: #### L IPID, URIC, BNP, CMP, TSH, T7 #### [facility] [address] [place] [address] Dr. Wicho Allred Creatinine [Mass/Vol] 0.98 mg/dL Normal 0.70-1.30 [facility] Comment on above: Performed By: #### L IPID, URIC, BNP, CMP, TSH, T7 #### [facility] [address] [place] [address] Dr. Wicho Allred EGFR-AF JORDANIAN >60 Normal >=60 [facility] Comment on above: Performed By: #### L IPID, URIC, BNP, CMP, TSH, T7 #### [facility] [address] [place] [address] Dr. Wicho Allred EGFR-NON AF JORDANIAN >60 Normal >=60 [facility] Comment on above: Performed By: #### L IPID, URIC, BNP, CMP, TSH, T7 #### [facility] [address] [place] [address] Dr. Wicho Allred Globulin (S) [Mass/Vol] 3.8 g/dL Normal [facility] Comment on above: Performed By: #### L IPID, URIC, BNP, CMP, TSH, T7 #### [facility] [address] [place] [address] Dr. Wicho Allred Glucose [Mass/Vol] 114 mg/dL Critically high 74-106 [facility] Comment on above: Performed By: #### L IPID, URIC, BNP, CMP, TSH, T7 #### [facility] [address] [place] [address] Dr. Wicho Allred Potassium [Moles/Vol] 4.5 mmol/L Normal 3.5-5.1 [facility] Comment on above: Performed By: #### L IPID, URIC, BNP, CMP, TSH, T7 #### [facility] [address] [place] [address] Dr. Wicho Allred Protein [Mass/Vol] 7.9 g/dL Normal 6.4-8.2 [facility] Comment on above: Performed By: #### L IPID, URIC, BNP, CMP, TSH, T7 #### [facility] [address] [place] [address] Dr. Wicho Allred Sodium [Moles/Vol] 141 mmol/L Normal 136-145 [facility] Comment on above: Performed By: #### L IPID, URIC, BNP, CMP, TSH, T7 #### [facility] [address] [address] [address] Wicho Allred Urea nitrogen [Mass/Vol] 18.0 mg/dL Normal 7.0-18.0 [facility] Comment on above: Performed By: #### L IPID, URIC, BNP, CMP, TSH, T7 #### [facility] [address] [address] [address] Wicho Allred Urea nitrogen/Creatinine [Mass ratio] 18.4 mg/mg Normal [facility] Comment on above: Performed By: #### L IPID, URIC, BNP, CMP, TSH, T7 #### [facility] [address] [address] [address] Wicho Allred TSHon 05-09-2022 TSH 1.346 uIU/mL Normal 0.358-3.740 [facility] Comment on above: Performed By: #### L IPID, URIC, BNP, CMP, TSH, T7 #### [facility] [address] [address] [address] Wicho Allred URIC ACID SERUMon 05-09-2022 Urate [Mass/Vol] 3.9 mg/dL Normal 3.5-7.2 [facility] Comment on above: Performed By: #### L IPID, URIC, BNP, CMP, TSH, T7 #### [facility] [address] [address] [address] Wicho Allred Encounters Encounter Date Encounter Type Care Provider Facility Start: 02-19-2024 End: 02-19-2024 ambulatory TRINITY ARCHULETA [facility] Start: 02-03-2024 End: 02-05-2024 Evaluation and management of inpatient MARYBETH FRIAS [facility] Start: 02-03-2024 End: 02-03-2024 ambulatory UNKNOWN PROVIDER Facility:[facility] Start: 05-09-2022 End: 05-10-[address] KYM DYER Facility:[facility] Start: 10-20-[address] KYM DYER Facility :[facility] Procedures Date Procedure Procedure Detail Performing Clinician Start: 05-09-[address] MALIA DYER Comment on above: Performed By: #### P TWIN [facility] #### [facility] [address] [place], [place] [address] Dr. Wicho Allred Payers Date Payer Category Payer [facility] [id number] 1957 Medicare [id number] 1957 Self-pay 1959 Unknown [id number] 1942 Unknown [id number] 2.16.84 [id number] 1942 Unknown [id number] 2.16.84 [id number] 1942 Unknown [id number] 2.16.8 [id number] 1942 Unknown [id number] 2.16. [id number] 1942 Unknown [id number] 2.16.8 [id number] 1942 Unknown [id number] 2.16.8 [id number] Summary Purpose Family History No Family History Records FoundNo Family History Records FoundNo Family History Records FoundNo Family History Records FoundNo Family History Records Found Advance Directives No Advanced Directives Records FoundNo Advanced Directives Records FoundNo Advanced Directives Records FoundNo Advanced Directives Records FoundNo Advanced Directives Records Found Additional Source Comments (unrecognized sect ion and content) No Status Records FoundNo Status Records FoundNo Status Records FoundNo Status Records FoundNo Status Records Found INFORMATION SOURCE (unrecogn ized section and content) DATE CREATED AUTHOR 05/18/2022 [facility] DATE CREATED AUTHOR AUTHOR'S ORGANIZ ATION 02/06/2024 [facility] DATE CREATED AUTHOR AUTHOR'S ORGANIZ ATION 02/11/2024 [facility] DATE CREATED AUTHOR AUTHOR'S ORGANIZ ATION 02/11/2024 [facility] DATE CREATED AUTHOR AUTHOR'S FRIDA KILLIAN 02/20/2024 [facility] FOR RECORDS PERTAINING TO PATIENTS WHO ARE [...] BE BASED ON THE PRIMARY CLINICAL RECORDS. [facility]. provides no warranty or guarantee of the accuracy or completeness of information in this document.
[2024-02-20 15:21] LABS: Basophils Absolute Auto 0.1 10^3/uL (0.0-0.1); Basophils Percent Auto 1.3 % (0.2-2.0); Eosinophils Absolute Auto 0.2 10^3/uL (0.0-0.7); Eosinophils Percent Auto 3.4 % (0.9-7.0); Hematocrit 37.7 % (42.0-54.0); Hemoglobin 12.7 g/dL (14.0-18.0); Immature Granulocytes Abs Auto 0.01 10^3/uL (0.00-0.03); Immature Granulocytes Pct Auto 0.2 % (0.0-0.5); Lymphocytes Absolute Auto 1.8 10^3/uL (1.2-3.8); Lymphocytes Percent Auto 29.9 % (20.5-60.0); Mean Corpuscular HGB Conc 33.7 g/dL (29.9-35.2); Mean Corpuscular Hemoglobin 30.5 pg (25.9-34.0); Mean Corpuscular Volume 90.4 fL (80.0-94.0); Mean Platelet Volume 9.4 fL (9.5-13.5); Monocytes Absolute Auto 0.6 10^3/uL (0.3-0.8); Monocytes Percent Auto 9.8 % (1.7-12.0); Neutrophils Absolute Auto 3.4 10^3/uL (1.4-6.5); Neutrophils Percent Auto 55.4 % (43.0-75.0); Platelet Count 281 10^3/uL (150-450); Red Blood Count 4.17 10^6/uL (4.70-6.10); Red Cell Distribution Width 12.3 % (11.0-15.0); White Blood Count 6.2 10^3/uL (4.0-11.0)
[2024-02-20 15:27] LABS: Estimated Average Glucose 123 mg/dL; Glycohemoglobin A1C 5.9 % (4.5-6.2)
== END 2024-02-20 14:54 | disposition home or self-care (01) ==
LOC: LAB 14:54
PROVIDERS: PCP Family Medicine
DX: R73.09 Other abnormal glucose (principal); I26.99 Other pulmonary embolism without acute cor pulmonale
CPT/HCPCS: 36415; 83036; 85025

== ENCOUNTER 2024-06-18 09:39 | Outpatient (OUT) | payer MEDICARE, SELFPAY ==
[2024-06-18 10:22] LABS: Basophils Absolute Auto 0.1 10^3/uL (0.0-0.1); Basophils Percent Auto 0.9 % (0.2-2.0); Eosinophils Absolute Auto 0.1 10^3/uL (0.0-0.7); Eosinophils Percent Auto 1.5 % (0.9-7.0); Hematocrit 44.3 % (42.0-54.0); Hemoglobin 14.1 g/dL (14.0-18.0); Immature Granulocytes Abs Auto 0.03 10^3/uL (0.00-0.03); Immature Granulocytes Pct Auto 0.5 % (0.0-0.5); Lymphocytes Absolute Auto 1.7 10^3/uL (1.2-3.8); Lymphocytes Percent Auto 25.3 % (20.5-60.0); Mean Corpuscular HGB Conc 31.8 g/dL (29.9-35.2); Mean Corpuscular Hemoglobin 27.7 pg (25.9-34.0); Mean Platelet Volume 9.5 fL (9.5-13.5); Monocytes Absolute Auto 0.6 10^3/uL (0.3-0.8); Monocytes Percent Auto 8.3 % (1.7-12.0); Neutrophils Absolute Auto 4.2 10^3/uL (1.4-6.5); Neutrophils Percent Auto 63.5 % (43.0-75.0); Platelet Count 232 10^3/uL (150-450); Red Blood Count 5.09 10^6/uL (4.70-6.10); Red Cell Distribution Width 14.5 % (11.0-15.0); White Blood Count 6.6 10^3/uL (4.0-11.0)
[2024-06-18 10:53] LABS: Alanine Aminotransferase 36 U/L (16-63); Albumin Globulin Ratio 1.1; Albumin Level 3.6 g/dL (3.4-5.0); Alkaline Phosphatase 74 U/L (46-116); Anion Gap 9.9; Aspartate Amino Transferase 21 U/L (15-37); BUN Creatinine Ratio 12.7; Bilirubin Total 0.4 mg/dL (0.2-1.0); Calcium 8.4 mg/dL (8.5-10.1); Carbon Dioxide 30.2 mmol/L (21.0-32.0); Chloride 105 mmol/L (98-107); Chol HDL Ratio 3.6; Cholesterol 188 mg/dL (<=200); Estimated GFR (African America >60 (>=60 mL/min/1.73m^2); Estimated GFR (Non-African Ame 59 (>=60 mL/min/1.73m^2); Globulin 3.3 g/dL; Glucose 115 mg/dL (74-106); HDL Cholesterol 52 mg/dL (40-60); Potassium 4.1 mmol/L (3.5-5.1); Sodium 141 mmol/L (136-145); Thyroid Stimulating Hormone 2.128 uIU/mL (0.358-3.740); Total Protein 6.9 g/dL (6.4-8.2); Triglycerides 181 mg/dL (<=150); VLDL CHOLESTEROL 36.2 mg/dL
[2024-06-18 11:08] LABS: Estimated Average Glucose 131 mg/dL; Glycohemoglobin A1C 6.2 % (4.5-6.2); Prostate Specific Antigen Scrn 4.43 ng/mL (<=4.00)
[2024-06-20 04:07] LABS: PSA, Free 0.81 ng/mL
== END 2024-06-18 09:40 | disposition home or self-care (01) ==
PROVIDERS: PCP Family Medicine; Visit Provider Family Medicine
DX: N40.0 Benign prostatic hyperplasia without lower urinary tract symptoms (principal); I10 Essential (primary) hypertension; E78.00 Pure hypercholesterolemia, unspecified; I26.99 Other pulmonary embolism without acute cor pulmonale; R73.09 Other abnormal glucose; Z12.5 Encounter for screening for malignant neoplasm of prostate; R97.20 Elevated prostate specific antigen [PSA]
CPT/HCPCS: 36415; 80053; 80061; 83036; 84153; 84154; 84436; 84443; 84481; 85025; G0103